=== PATIENT | male | born 1955 | race Caucasian/White ===

== ENCOUNTER 2019-12-14 19:45 | Observation (INO) | payer MEDICAID, SELFPAY ==
[2019-12-14] VITALS (7 sets, daily range): BP systolic 125–147; BP diastolic 83–99; PULSE 74–90; RESP 16–17; TEMP 36.7; O2SAT 95–96; BMI 33.9; BMI 34.5
[2019-12-14 20:03] LABS: Basophils # 0.1 K/mm3 (0-0.2); Basophils % 0.8 % (0.1-2.0); Eosinophils # 0.4 K/mm3 (0.0-0.4); Eosinophils % 3.6 % (0.1-12.0); Hematocrit 46.4 % (42.0-52.0); Hemoglobin 16.4 g/dL (14.1-18.0); Lymphocytes # 2.9 K/mm3 (0.7-4.5); Lymphocytes % 28.9 % (10-50); Mean Corpuscular HGB Conc 35.5 g/dL (31.8-35.4); Mean Corpuscular Hemoglobin 30.9 pg (27.0-31.2); Mean Platelet Volume 8.5 fl (7.4-10.4); Monocytes # 0.6 K/mm3 (0.1-1.0); Monocytes % 6.3 % (1.7-9.3); Neutrophils % 60.4 % (37.0-80.0); Platelet Count 144 K/mm3 (142-424); Red Blood Count 5.33 M/mm3 (4.60-6.20); Red Cell Distribution Width 13.8 % (11.5-17.5); White Blood Count 9.9 K/mm3 (4.8-10.8)
[2019-12-14 20:05] LABS: POC Glucose,Bedside 131 (70-110)
[2019-12-14 20:09] LABS: Chloride 101 mmol/L (98-107); Sodium 138 mmol/L (136-145)
[2019-12-14 20:12] LABS: Alanine Aminotransferase 23 U/L (12-78); Albumin Level 4.1 g/dl (3.5-5.0); Albumin/Globulin Ratio 1.5 (1.1-1.8); Alkaline Phosphatase 42 U/L (38-126); Aspartate Amino Transferase 24 U/L (17-59); Bilirubin,Total 0.5 mg/dl (0.2-1.3); Blood Urea Nitrogen 21 mg/dl (9-20); Calcium 9.3 mg/dl (8.4-10.2); Carbon Dioxide 28 mmol/L (22.0-30.0); Creatinine Clearance Estimated 123 mL/min (50-200); Estimated Glomerular Filt Rate 76 ml/min (>60); GFR (African American) 92 ML/MIN (>60); Globulin 2.8 g/dL (1.3-3.2); Glucose 139 mg/dl (74-100); Total Protein,Serum 6.9 g/dl (6.3-8.2)
--- NOTE | 2019-12-14 20:21 | CT_ITS ---
PROCEDURE: CT HEAD/BRAIN WO CON CLINICAL INDICATION: dizziness Slurred speech, TIA COMPARISON: No exams were available for comparison TECHNIQUE: Axial images obtained. All CT scans at the facility use one or more dose reduction, viz: automated exposure control, ma/kV adjustment per patient size (including targeted exams where dose is matched to indication, i.e. head), or iterative reconstruction technique. FINDINGS: No midline shift, mass effect, intracranial hemorrhage, hydrocephalus, or extra-axial fluid collection is evident. Tortuous basilar artery measuring up to 5 mm in diameter the calvarium has an unremarkable appearance. No mastoid effusion. Mild mucosal thickening ethmoid air cells IMPRESSION: No acute intracranial finding Dictated by: Martín Mcdaniel MD 12/15/2019 06:25 Electronically signed by Martín Mcdaniel MD in [place] 12/15/2019 06:25
--- NOTE | 2019-12-14 20:40 | HMH.EDNEU ---
ED Disposition Clinical Impression: Obesity (BMI 30.0-34.9), Tobacco use Transient cerebral ischemia Qualifiers: Transient cerebral ischemia type: unspecified Qualified Code(s): G45.9 - Transient cerebral ischemic attack, unspecified HTN (hypertension) Qualifiers: Hypertension type: essential hypertension Qualified Code(s): I10 - Essential (primary) hypertension Disposition: Admitted as Observation Condition on Discharge: Good - Critical Care Critical Care Time: No Attestation: On 12/14/19, the high probability of a clinically significant, sudden or life threatening deterioration of the following system(s) required my full and direct attention, intervention and personal management. The time I documented below is in addition to time spent performing reported procedures but includes the following listed in this critical care notation. Medical Decision Making - Medical Records Medical records reviewed: Yes: I reviewed the patient's medical records. - Caio Inquiry Pt receiving controlled substance: No Vital Signs: 12/14/19 19:46 12/14/19 20:46 12/14/19 21:12 Temperature 98.1 F Temperature Source Oral Pulse Rate [Right Brachial] 79 76 78 Respiratory Rate 17 16 Blood Pressure [Right Arm] 145/97 H 139/87 136/83 Blood Pressure Mean [Right Arm] 113 104 100 Blood Pressure Source [Right Arm] Automatic Cuff Automatic Cuff Automatic Cuff Blood Pressure Position [Right Arm] Sitting Sitting Sitting 02 Sat by Pulse Oximetry 95 96 95 Oxygen Delivery Method Room Air Room Air Room Air - Lab Data Lab results reviewed: Yes: I reviewed the patient's lab results. Lab Results 12/14/19 19:47: WBC 9.9, RBC 5.33, Hgb 16.4, Hct 46.4, MCV 87.0, MCH 30.9, MCHC 35.5 H, RDW 13.8, Plt Count 144, MPV 8.5, Neut % (Auto) 60.4, Lymph % (Auto) 28.9, Caldwell % (Auto) 6.3, Eos % (Auto) 3.6, Baso % (Auto) 0.8, Neut # (Auto) 6.0, Lymph # (Auto) 2.9, Caldwell # (Auto) 0.6, Eos # (Auto) 0.4, Baso # (Auto) 0.1 12/14/19 19:47: Sodium 138, Potassium 4.0, Chloride 101, Carbon Dioxide 28, Anion Gap 13.0, BUN 21 H, Creatinine 1.00, Estimated Creat Clear 123, Estimated GFR 76, Est GFR ( Amer) 92, Glucose 139 H, Calcium 9.3, Total Bilirubin 0.5, AST 24, ALT 23, Alkaline Phosphatase 42, Total Protein 6.9, Albumin 4.1, Globulin 2.8, Albumin/Globulin Ratio 1.5 12/14/19 19:58: POC Glucose 131 H Result diagrams: 12/14/19 19:47 12/14/19 19:47 Orders (Tests/Meds): ED MEDICATIONS Generic Name Dose Route Start Last Admin Trade Name Freq PRN Reason Stop Dose Admin Sodium Chloride 1,000 mls @ 999 mls/hr 12/14/19 20:00 12/14/19 20:04 Sod Chlor 0.9% 1000ml Bag IV 12/14/19 21:00 999 mls/hr .Q1H1M MALLY Administration Lisinopril 5 mg 12/15/19 21:13 Zestril 5mg Tablet PO 12/15/19 21:14 ONCE ONE Discontinued Medications Generic Name Dose Route Start Last Admin Trade Name Freq PRN Reason Stop Dose Admin Aspirin 81 mg 12/14/19 21:13 Aspirin 81mg Chewable Tablet PO 12/14/19 21:14 ONCE ONE Enoxaparin Sodium 110 mg 12/14/19 21:12 Lovenox 120mg/0.8ml Syringe SQ 12/14/19 21:13 ONCE ONE ORDERS Category Date Time Status CT head/brain wo con Stat Cat Scan 12/14/19 20:21 Taken Erythrocyte Sedimentation Rate Stat Lab 12/14/19 19:47 Received Troponin I Q3H Lab 12/15/19 00:15 Ordered Troponin I Q3H Lab 12/15/19 03:15 Ordered Troponin I Stat Lab 12/14/19 19:47 Received - CT Data CT Scan: Head Time Received: 21:[address] Reviewed: Yes: I have viewed the radiologist's interpretation Preliminary Findings: Normal/NAD - Physician Consults Physician Consulted: gal Reason -: Admission Neuro HPI - General Chief Complaint: Dizziness Stated Complaint: dizziness Time Seen by Provider: 12/14/19 20:00 Mode of Arrival: EMS Source of Information: Patient, Relative, Medical Record Limitations: No Limitations Description of Symptoms (Recalled from ER Triage Doc. by RN): Patient brought in by
--- NOTE | 2019-12-14 20:46 | PC.NURSE ---
pt back from ct at this time
--- NOTE | 2019-12-14 21:14 | PC.NURSE ---
verbal order to admit and for lovenox 1mg/kg x one dose, aspirin 81mg x 1 dose, lisinopril 5mg x [address] gauthier for dr santo. bed requested for admit.
[2019-12-14 21:31] LABS: Erythrocyte Sedimentation Rate 22 mm/hr (0-20); Troponin I < 0.01 ng/ml (0.00-0.034)
--- NOTE | 2019-12-14 22:03 | PC.NURSE ---
patient up to floor via wheelchair.
[2019-12-15] VITALS: BP 143/82; PULSE 89; PULSE 90; RESP 16; TEMP 36.7; O2SAT 95
[2019-12-15 00:59] LABS: Troponin I < 0.01 ng/ml (0.00-0.034)
--- NOTE | 2019-12-15 02:41 | PC.NURSE ---
Late Entry: During admission questions, pt was offered Nicotine patch per MAR and pt refused. Pt stated he started smoking at the age of 16 and smoked up to 5 PPD and quit 8 years ago d/t his health. However pt started back smoking about a yr ago d/t everyone getting on my nerves . Pt encouraged to try patch, although pt continued to refuse.
[2019-12-15 03:38] LABS: Troponin I < 0.01 ng/ml (0.00-0.034)
[2019-12-15 04:00] VITALS: BP 140/68; PULSE 80; PULSE 88; RESP 16; TEMP 36.7; O2SAT 94
[2019-12-15 06:31] LABS: Basophils # 0.1 K/mm3 (0-0.2); Basophils % 0.9 % (0.1-2.0); Eosinophils # 0.3 K/mm3 (0.0-0.4); Eosinophils % 4.4 % (0.1-12.0); Hematocrit 46.2 % (42.0-52.0); Hemoglobin 15.8 g/dL (14.1-18.0); Lymphocytes # 2.2 K/mm3 (0.7-4.5); Lymphocytes % 29.2 % (10-50); Mean Corpuscular HGB Conc 34.2 g/dL (31.8-35.4); Mean Corpuscular Hemoglobin 31.2 pg (27.0-31.2); Mean Platelet Volume 8.2 fl (7.4-10.4); Monocytes # 0.5 K/mm3 (0.1-1.0); Monocytes % 6.6 % (1.7-9.3); Neutrophils # 4.4 K/mm3 (1.8-7.8); Neutrophils % 58.9 % (37.0-80.0); Platelet Count 128 K/mm3 (142-424); Red Blood Count 5.07 M/mm3 (4.60-6.20); Red Cell Distribution Width 13.5 % (11.5-17.5); White Blood Count 7.5 K/mm3 (4.8-10.8)
[2019-12-15 06:36] LABS: Potassium 4.3 mmoL/L (3.5-5.1)
[2019-12-15 06:39] LABS: Blood Urea Nitrogen 15 mg/dl (9-20); Calcium 8.8 mg/dl (8.4-10.2); Carbon Dioxide 28 mmol/L (22.0-30.0); Creatinine Clearance Estimated 125 mL/min (50-200); Estimated Glomerular Filt Rate 98 ml/min (>60); GFR (African American) 119 ML/MIN (>60); Glucose 123 mg/dl (74-100)
[2019-12-15 06:40] LABS: HDL Cholesterol 22 mg/dl (40-60); Magnesium 1.9 mg/dl (1.6-2.3)
[2019-12-15 06:50] LABS: Direct LDL Cholesterol 113.05 mg/dL (100-129)
[2019-12-15 07:07] LABS: Anion Gap 9.3 mEq/L (5-15); Chloride 107 mmol/L (98-107); Sodium 140 mmol/L (136-145)
[2019-12-15 07:08] LABS: Chol/HDL Ratio 7.6 (1-3.5); Cholesterol 168 mg/dl (140-200); Triglycerides 309 mg/dl (30-150); VLDL Cholesterol 62 mg/dL (0-40)
--- NOTE | 2019-12-15 07:36 | HMH.PHAVTE ---
[facility] Pharmacy VTE Monitoring - Patient Demographics Admission date: 12/14/19 Report Date: 12/15/19 Time: 07:36 Allergies/Adverse Reactions: Patient Allergies Penicillins Adverse Reaction (Verified 12/14/19 19:59) Height: 1.83 m Weight: 115.666 kg Patient Problems: Current Active Problems Transient cerebral ischemia (Acute) Obesity (BMI 30.0-34.9) (Acute) Tobacco use (Acute) HTN (hypertension) (Acute) - VTE Risk Labs: VTE Related Lab Results Hgb 15.8 g/dL (14.1-18.0) 12/15/19 06:21 Hct 46.2 % (42.0-52.0) 12/15/19 06:21 Plt Count 128 K/mm3 (142-424) L 12/15/19 06:21 BUN 15 mg/dl (9-20) D 12/15/19 06:21 Creatinine 0.80 mg/dl (0.66-1.25) 12/15/19 06:21 Estimated Creat Clear 125 mL/min (50-200) 12/15/19 06:21 VTE Score: 2 Clinical Trial Participant: No - Prophylaxis VTE Prophylaxis Ordered?: Yes Types of VTE Prophylaxis: TEDS Knee High
[2019-12-15 08:00] VITALS: BP 124/73; PULSE 70; PULSE 73; RESP 20; TEMP 36.4; O2SAT 97
--- NOTE | 2019-12-15 08:00 | CA_ITS ---
APPROVED REPORT Provider Enrollment Specialist: ROXANNA Laterality: Bilateral Study Quality: Good Indications: tia,HTN,SMOKER Doppler Spectral Velocity Analysis dICA (R) 63.60/25.50 cm/s dICA (L) 77.00/24.90 cm/s Ángela (R) 70.00/21.20 cm/s Ángela (L) 97.20/36.60 cm/s pICA (R) 60.30/19.30 cm/s pICA (L) 66.60/24.40 cm/s dCCA (R) 110.50/29.20 cm/s dCCA (L) 110.40/28.00 cm/s pCCA (R) 90.70/25.60 cm/s pCCA (L) 138.40/29.60 cm/s ICA/CCA 0.60 ICA/CCA 0.90 Findings Duplex evaluation demonstrates stenosis of the right proximal internal carotid artery in the range of 20-49% with PSV <140 cm/sec, EDV <100 cm/sec, and IC/CC Ratio <4.0.Duplex evaluation demonstrates stenosis of the left proximal internal carotid artery in the range of 20-49% with PSV <140 cm/sec, EDV <100 cm/sec, and IC/CC Ratio <4.0. Unable to visualize vertebrals bilaterally. Conclusion Duplex evaluation demonstrates stenosis of the right proximal internal carotid artery in the range of 20-49% with PSV <140 cm/sec, EDV <100 cm/sec, and IC/CC Ratio <4.0.Duplex evaluation demonstrates stenosis of the left proximal internal carotid artery in the range of 20-49% with PSV <140 cm/sec, EDV <100 cm/sec, and IC/CC Ratio <4.0. Unable to visualize vertebrals bilaterally. Electronically signed by : Martín Mcdaniel MD 12/15/2019 16:31:11
--- NOTE | 2019-12-15 08:00 | CA_ITS ---
APPROVED REPORT EXAM: Comprehensive 2D, Doppler, and color-flow Echocardiogram Youth Nutritional Monitor: Joy Cordero RDCS Ht: 6 ft 0 in Wt: 250lbs BSA: 2.34 BP: 136/83 mmHg Indications: TIA,HTN,SMOKER 2D Dimensions LVOT 1.64 cm (M/F) 1.5-2.5 M-Mode Dimensions RVDd 2.23 cm (0.9-2.6) LVDd 6.07 cm (3.5-5.7) LVDs 4.02 cm (3.5-5.7) IVSd 0.94 cm (0.6-1.1) PWd 0.85 cm (0.6-1.1) EF (Teich) 61.70% FS 33.80% EDV (Teich) 184.80 mL ESV (Teich) 70.80 mL LV Diastology E/A Ratio 0.74 Mitral Valve MV A Velocity 79.00 (40-130 cm/s) Left Ventricle Left atrium is mildly enlarged, left ventricle is normal size, mild concentric left ventricular hypertrophy, visually estimated ejection fraction 55% with no regional wall motion abnormality, grade 1 diastolic dysfunction seen without tissue Doppler evidence of raise left atrial pressure. Right Ventricle Right atrium and right ventricle are normal size and contractility. Aortic Valve Aortic valve is thickened and calcified leaflet chordae display good mobility, there is no aortic stenosis or aortic insufficiency. Mitral Valve Mitral valve mitral annular calcification, there is no mitral stenosis, there is mild mitral regurgitation. Tricuspid Valve Tricuspid valve grossly normal, there is mild tricuspid regurgitation, tricuspid regurgitation jet velocity is inadequate for calculation of the right ventricular systolic pressure. Pulmonic Valve Pulmonic valve is poorly visualized. Great Vessels Aortic root is normal size. Pericardium No significant pericardial effusion noted. Conclusion 1. Mildly enlarged left atrium, normal left ventricular size, mild concentric left ventricular hypertrophy, visually estimated ejection fraction 55% with no regional wall motion abnormality, grade 1 diastolic dysfunction seen without tissue Doppler evidence of raise left atrial pressure. 2. Mild mitral and tricuspid regurgitation. 3. No significant pericardial effusion noted. Electronically signed by : César Gill, 12/16/2019 11:08:30
--- NOTE | 2019-12-15 08:00 | HMH.HPDC ---
General - General Admission date:: 12/14/19 Discharge date: 12/15/19 *Admission Date: 12/14/19 *Chief complaint: Visual disturbances/dizziness *History of present illness: 64-year-old white male with history of hyperlipidemia, tobacco abuse and hypertension who presented to the emergency department with several episodes of left visual disturbance, dizziness and tingling into his left face with some speech slurring. Although in the emergency department his exam was normal because of these accelerating TIA type patterns he was admitted overnight for neuro checks and further diagnostic testing. [facility] History I have reviewed the patient's past medical history: Yes Medical History: Reports:: Hypertension Denies:: Cancer, Diabetes Mellitus Type 1, Diabetes Mellitus Type 2, MRSA *Have you ever received a pneumonia vaccine?: No *Have you received a flu vaccine this season?: No Other Medical History: Reports: Arthritis Other Surgeries: Yes: Colonoscopy - *Social History Last grade of school completed: 9th or 10th Smoking Status: Current every day smoker Tobacco Type: cigarettes # Packs/Day (cigarettes): 2 Alcohol Intake: current Alcohol Intake Frequency:: holidays/special occasions only *Occupational Status:: employed Housing: house Household Members: spouse *Travel in the last 8 weeks: None Family Hx:: No significant family history Review of Systems - Review of Systems Review of systems:: pertinent systems reviewed and negative unless documented below - *Neurologic Denies localized weakness, Denies seizure-like activity Exam Vital signs and Labs for Last 24 Hours: Temp Pulse Resp BP Pulse Ox 98.0 F 88 16 140/68 94 L 12/15/19 04:00 12/15/19 04:00 12/15/19 04:00 12/15/19 04:00 12/15/19 04:00 Laboratory Results - last 24 hr 12/14/19 19:47: WBC 9.9, RBC 5.33, Hgb 16.4, Hct 46.4, MCV 87.0, MCH 30.9, MCHC 35.5 H, RDW 13.8, Plt Count 144, MPV 8.5, Neut % (Auto) 60.4, Lymph % (Auto) 28.9, Lasalle % (Auto) 6.3, Eos % (Auto) 3.6, Baso % (Auto) 0.8, Neut # (Auto) 6.0, Lymph # (Auto) 2.9, Lasalle # (Auto) 0.6, Eos # (Auto) 0.4, Baso # (Auto) 0.1 12/14/19 19:47: Sodium 138, Potassium 4.0, Chloride 101, Carbon Dioxide 28, Anion Gap 13.0, BUN 21 H, Creatinine 1.00, Estimated Creat Clear 123, Estimated GFR 76, Est GFR ( Amer) 92, Glucose 139 H, Calcium 9.3, Total Bilirubin 0.5, AST 24, ALT 23, Alkaline Phosphatase 42, Total Protein 6.9, Albumin 4.1, Globulin 2.8, Albumin/Globulin Ratio 1.5 12/14/19 19:47: ESR 22 H 12/14/19 19:47: Troponin I < 0.01 12/14/19 19:58: POC Glucose 131 H 12/15/19 00:25: Troponin I < 0.01 12/15/19 03:09: Troponin I < 0.01 12/15/19 06:21: WBC 7.5, RBC 5.07, Hgb 15.8, Hct 46.2, MCV 91.0, MCH 31.2, MCHC 34.2, RDW 13.5, Plt Count 128 L, MPV 8.2, Neut % (Auto) 58.9, Lymph % (Auto) 29.2, Lasalle % (Auto) 6.6, Eos % (Auto) 4.4, Baso % (Auto) 0.9, Neut # (Auto) 4.4, Lymph # (Auto) 2.2, Lasalle # (Auto) 0.5, Eos # (Auto) 0.3, Baso # (Auto) 0.1 12/15/19 06:21: Sodium 140, Potassium 4.3, Chloride 107, Carbon Dioxide 28, Anion Gap 9.3, BUN 15 D, Creatinine 0.80, Estimated Creat Clear 125, Estimated GFR 98, Est GFR ( Amer) 119 D, Glucose 123 H, Calcium 8.8, Magnesium 1.9, Triglycerides 309 H, Cholesterol 168, LDL Cholesterol Direct 113.05, VLDL Cholesterol 62 H, HDL Cholesterol 22 L, Cholesterol/HDL Ratio 7.6 H I & O for Last 24 hours: Intake & Output 12/12/19 12/13/19 12/14/19 12/15/19 11:59 11:59 11:59 11:59 Intake Total 490 / 490 Balance 490 / 490 Weight 255 lb - *Routine HEENT Exam Head: Present: normocephalic Eye: Present: EOMI, PERRL ENT: Present: mucous membranes moist - *Routine Neck Exam Present: supple. Absent: lymphadenopathy - *Routine Respiratory Exam Present: CTA bilaterally - *Routine Cardiovascular Exam Present: RRR - *Routine Abdominal Exam Present: soft, normoactive bowel sounds. Absent: tenderness - *Routine Extremities Exam Absent: cyanosis, clubbing, ed
--- NOTE | 2019-12-15 08:30 | HMH.PHAINT ---
DISCHARGE COUNSELING COMPLETED ON PATIENT. NEW PRESCRIPTION FOR LIPITOR 40MG TO BE TAKEN AT NIGHT. THIS WAS SENT TO [facility]. REFILLS WERE ALSO SENT FOR PATIENT'S LISINOPRIL AND ASPIRIN. PATIENT AND PATIENT'S SPOUSE VERBALIZED UNDERSTANDING AND HAD NO QUESTIONS AT THIS TIME. -TROY SOLIS, ANTOINED
== END 2019-12-15 08:40 | disposition home or self-care (01) ==
LOC: ER 19:51 → 2ND 21:21
PROVIDERS: Admitting Provider Internal Medicine Adolescent Medicine; Emergency Provider Emergency Medicine; PCP Nurse Practitioner Family; Visit Provider Internal Medicine Adolescent Medicine
DX: G45.9 Transient cerebral ischemic attack, unspecified (principal); I10 Essential (primary) hypertension; E78.5 Hyperlipidemia, unspecified; Z72.0 Tobacco use
CPT/HCPCS: 36415; 70450; 80048; 80053; 80061; 82962; 83735; 84484; 85025; 85651; 93306; 93880; 96365; 96372; 99284; G0378

== ENCOUNTER → 2019-12-21 14:21 | Outpatient (CLI) | payer MEDICAID, SELFPAY ==
--- NOTE | 2019-12-21 14:32 | MR_ITS ---
PROCEDURE: MR ANGIO HEAD ANTONIETA CON Patient Age:64Y CLINICAL INDICATION: TIA, DIZZINESS, UNSTEADY GAIT episodes of dizziness headache immobile left leg slurred speech 1 year worse past 2 months COMPARISON: MR HEAD/BRAIN ANTONIETA LEONG from 12/21/2019 TECHNIQUE: MRA angiogram of the brain is with focus upon [id number] a using primarily time of flight technique FINDINGS: Images the brain with attention [id number] reveal No aneurysm. No vascular malformation Anterior circulation Internal carotid arteries appear satisfactory bilaterally satisfactory symmetric appearance of both carotid siphons. Normal caliber and normal branching of ICA . MCA appears satisfactory appropriate branching with no good evidence of aneurysm here or at [id number] elsewhere. MCA branches actually well seen extending into through the sylvian fissure of no discrete abnormalities in these regions.. The anterior cerebral arteries and pericallosal arteries believe are satisfactory-although there is some signal loss likely artifactual seen and both anterior cerebral arteries approximately 1 in above anterior communicating a artery. I favor this is merely artifact as a both anterior cerebral arteries continue beyond this point satisfactorily. Posterior circulation. Both vertebral arteries are identified forming a generous basilar artery. However just superior to the bilateral of takeoff anterior inferior cerebellar arteries, there appears to be a significant area of narrowing at the basilar artery. Estimate roughly 70 percent diameter stenosis is suggested on these images. I cannot attribute this to artifact and this appearance is evident on all images through this region.. You may want to consider a follow-up CT angiogram in follow-up confirm this appearance; I find CT a provides even greater anatomical detail and quantification for this type of stenosis period... Again reviewing the prior standard MR brain we see no no discrete territorial infarct at posterior fossa IMPRESSION: 1.. 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 Although certainly fairly convincing on these images CTAa could additionally confirm this lesion/stenosis provide greater anatomical detail of the degree of stenosis-thus might be considered in follow-up A stenosis here would certainly correspond with the intermittent dizziness symptoms reported 2. Overall anterior circulation I believe satisfactory. Normal branching MCA There is a area of signal loss at the proximal anterior cerebral arteries which I favor is due to artifact (doubt focal mild stenosis of both anterior cerebral artery at same level) 3. No aneurysm. Nor vascular malformation at brain Dictated by: Jericho Quinones MD 12/24/2019 10:13 Electronically signed by Jericho Quinones MD in [place] 12/24/2019 10:13
--- NOTE | 2019-12-21 14:32 | MR_ITS ---
PROCEDURE: MR HEAD/BRAIN WO CON Patient Age:64Y CLINICAL INDICATION: TIA, DIZZINESS, UNSTEADY GAIT. Immobile left leg. Slurred speech. Symptoms 1 year but worse over the past 2 months. COMPARISON: XR CHEST PORTABLE from 08/18/2019 CT HEAD/BRAIN WO CON from 12/14/2019 TECHNIQUE: Multiplanar multisequence imaging on 1.5 cyndie MR. Images sequences include T1, T2, FLAIR, a ADC/diffusion FINDINGS: Normal overall anatomy. No mass effect or discrete mass lesion No territorial infarct. No discrete acute infarct . Ventricles appropriate size and appearance.. Basal cisterns unremarkable the 2 tearing and sella normal size. Regarding history of dizziness: Normal cranial cervical junction. CP angles clear. Posterior fossa unremarkable. IAC's unremarkable on this noncontrast study.. Mastoids are for the most part clear with only a single high signal inferior left mastoid antrum air cell reflecting a very small insignificant appearing mastoid effusion here (axial slice 5) Single peripheral high signal focus seen superiorly involving the far peripheral white matter, at the base of a superior gyrus near midline precentral region (coronal image 17 axial 22) towards the convexity.. This focus is best seen on the coronal FLAIR image measuring to 5.5 mm height x 3 mm wide. This is nonspecific high-signal focus: In this age I suspect more likely a small chronic small-vessel ischemic focus but more peripheral than typically seen for such. Unlikely onset of demyelinating disease at this age. There is no mass effect or is edema associated but if symptoms continue to progress consider postcontrast study.-Note CXR from July 2019 showed no related nor prominent findings Stippled mildly prominent perivascular spaces are seen floor the basal ganglia; with most evident small 4 mm round focus at the floor of right basal ganglia. No associated increased FLAIR signal here thus favor prominent perivascular spaces and rather than small old lacune. Prominent perivascular spaces more frequently seen with history of hypertension There is subtle rim increased signal surrounding the lateral ventricles this likely reflects some aging changes of the ependyma, particularly anteriorly about the horns. Of however possibly could be a reflection of early small vessel ischemic changes.-I would specifically note that there is a small additional deep white matter signal focus superior to the atria of the left lateral ventricle as seen on coronal image 19 which is suggestive of minor early deep white matter ischemic gliotic changes. . Scalp, skull and dural spaces unremarkable.. Survey of orbits unremarkable. Only scant if any mucosal thickening at ethmoid air cells left more so than right. Maxillary sinuses, sphenoid, and frontal sinuses clear. There appears to be some deviation nasal septum convex to the right with a moderate engorged of left nasal turbinates currently on today's study. IMPRESSION: 1. Normal anatomy.. No acute nor territorial infarct. No discrete mass affect or mass lesion. 2. There is a discrete solitary peripheral high signal focus within the white matter at base of gyrus superiorly, near midline, pre central region.(best seen on coronal image 17). [id number] size Although this more peripheral than typically seen for small vessel disease, suspect this is most likely etiology of this focus in this age patient.. Demyelinating disease onset at this age would be unusual. No edema or mass effect associated;however symptoms should progression may want to consider a follow-up postcontrast study. 3. Also suggestion very minor chronic small vessel deep white-matter ischemic changes periventricular region, specifically noting small
== END ==
PROVIDERS: PCP Nurse Practitioner Family; Visit Provider Nurse Practitioner Family
DX: R42 Dizziness and giddiness (principal); R26.81 Unsteadiness on feet; R47.81 Slurred speech; G45.9 Transient cerebral ischemic attack, unspecified
CPT/HCPCS: 70544; 70551

== ENCOUNTER → 2020-07-29 09:41 | Outpatient (CLI) | payer OTHER, SELFPAY ==
[2020-07-29 10:22] LABS: Hemoglobin A1C 6.7 % (4.0-6.0)
[2020-07-29 10:44] LABS: Chloride 106 mmol/L (98-107)
[2020-07-29 10:45] LABS: Potassium 5.5 mmoL/L (3.5-5.1); Sodium 139 mmol/L (136-145)
[2020-07-29 10:47] LABS: Alanine Aminotransferase 22 U/L (12-78); Albumin Level 4.3 g/dl (3.5-5.0); Albumin/Globulin Ratio 1.6 (1.1-1.8); Alkaline Phosphatase 44 U/L (38-126); Anion Gap 10.5 mEq/L (5-15); Aspartate Amino Transferase 27 U/L (17-59); Bilirubin,Total 0.6 mg/dl (0.2-1.3); Blood Urea Nitrogen 14 mg/dl (9-20); Calcium 9.7 mg/dl (8.4-10.2); Carbon Dioxide 28 mmol/L (22.0-30.0); Cholesterol 191 mg/dl (140-200); Estimated Glomerular Filt Rate 86 ml/min (>60); GFR (African American) 103 ML/MIN (>60); Globulin 2.7 g/dL (1.3-3.2); Glucose 111 mg/dl (74-100); Triglycerides 244 mg/dl (30-150); VLDL Cholesterol 49 mg/dL (0-40)
[2020-07-29 10:48] LABS: Chol/HDL Ratio 6.8 (1-3.5); HDL Cholesterol 28 mg/dl (40-60)
[2020-07-29 10:59] LABS: Direct LDL Cholesterol 130.72 mg/dL (100-129)
== END ==
PROVIDERS: Visit Provider Nurse Practitioner Family
DX: Z00.00 Encounter for general adult medical examination without abnormal findings (principal); E78.2 Mixed hyperlipidemia; I10 Essential (primary) hypertension; E11.9 Type 2 diabetes mellitus without complications
CPT/HCPCS: 36415; 80053; 80061; 83036

== ENCOUNTER → 2020-09-19 10:53 | Outpatient (CLI) | payer OTHER, SELFPAY ==
[2020-09-19 11:14] LABS: Basophils # 0.1 K/mm3 (0-0.2); Basophils % 0.8 % (0.1-2.0); Eosinophils # 0.3 K/mm3 (0.0-0.4); Eosinophils % 4.1 % (0.1-12.0); Hemoglobin 15.4 g/dL (14.1-18.0); Lymphocytes % 26.2 % (10-50); Mean Corpuscular HGB Conc 32.8 g/dL (31.8-35.4); Mean Corpuscular Hemoglobin 29.7 pg (27.0-31.2); Mean Corpuscular Volume 90.6 fl (80-94); Mean Platelet Volume 8.1 fl (7.4-10.4); Monocytes # 0.5 K/mm3 (0.1-1.0); Neutrophils # 4.8 K/mm3 (1.8-7.8); Neutrophils % 62.8 % (37.0-80.0); Platelet Count 153 K/mm3 (142-424); Red Blood Count 5.19 M/mm3 (4.60-6.20); Red Cell Distribution Width 13.3 % (11.5-17.5); White Blood Count 7.6 K/mm3 (4.8-10.8)
[2020-09-19 11:59] LABS: Alanine Aminotransferase 22 U/L (12-78); Albumin/Globulin Ratio 1.6 (1.1-1.8); Alkaline Phosphatase 52 U/L (38-126); Anion Gap 10.9 mEq/L (5-15); Aspartate Amino Transferase 24 U/L (17-59); Bilirubin,Total 0.4 mg/dl (0.2-1.3); Blood Urea Nitrogen 12 mg/dl (9-20); Calcium 9.2 mg/dl (8.4-10.2); Carbon Dioxide 26 mmol/L (22.0-30.0); Chloride 106 mmol/L (98-107); Chol/HDL Ratio 5.1 (1-3.5); Cholesterol 148 mg/dl (140-200); Estimated Glomerular Filt Rate 86 ml/min (>60); GFR (African American) 103 ML/MIN (>60); Globulin 2.5 g/dL (1.3-3.2); Glucose 126 mg/dl (74-100); HDL Cholesterol 29 mg/dl (40-60); Potassium 4.9 mmoL/L (3.5-5.1); Sodium 138 mmol/L (136-145); Total Protein,Serum 6.5 g/dl (6.3-8.2); Triglycerides 143 mg/dl (30-150); VLDL Cholesterol 29 mg/dL (0-40)
[2020-09-19 12:09] LABS: Direct LDL Cholesterol 95.02 mg/dL (100-129)
[2020-09-19 12:15] LABS: 25-OH Vitamin D, Total 19.6 ng/mL (30-100)
[2020-09-19 12:30] LABS: Thyroid Stimulating Hormone 2.31 uIU/mL (0.465-4.68)
[2020-09-19 12:48] LABS: Vitamin B12 277 pg/mL (239-931)
[2020-09-20 10:23] LABS: Hemoglobin A1C 6.9 % (4.0-6.0)
== END ==
PROVIDERS: Visit Provider Nurse Practitioner Family
DX: R42 Dizziness and giddiness (principal); I10 Essential (primary) hypertension; E11.9 Type 2 diabetes mellitus without complications; R20.2 Paresthesia of skin
CPT/HCPCS: 36415; 80053; 80061; 82306; 82607; 83036; 84443; 85025; 93270

== ENCOUNTER → 2020-10-12 12:40 | Outpatient (CLI) | payer OTHER, SELFPAY | PROVIDERS: PCP Nurse Practitioner Family; Visit Provider Nurse Practitioner Family | DX: G47.9 Sleep disorder, unspecified (principal); R51.9 Headache, unspecified; R06.83 Snoring; R40.0 Somnolence; G47.00 Insomnia, unspecified | CPT/HCPCS: 95806 ==

== ENCOUNTER → 2020-11-21 06:25 | Outpatient (CLI) | payer OTHER, SELFPAY ==
--- NOTE | 2020-11-21 06:26 | CA_ITS ---
APPROVED REPORT Exam: Pharmacologic Technologist: tom villegas, Ht: 6 ft 0 in Wt: 270 lbs BSA: 2.42 m2 HR: 73 bpm BP: 155/90 mmHg Indications: CP, SOB Medical History Medications: Lisinopril,,,,, Metoprolol,,,,, Asa,,,,, Metformin,,,,, Trazadone,,,,, Lipitor,,,,, BuPROPIn,,,,, Allergies: Penicillin Cardiac Risk Factors: HTN, Hyperlipidemia, Diabetes (non-insulin), Smoking Stress Test Details Test: LEXISCAN HR Resting HR: 73 bpm Max Heart Rate (APMHR): 158.963110 bpm Max HR Achieved: 97 bpm Target HR (85% APMHR): 134.655221 bpm % of APMHR: 61.39 Recovery HR: 83 bpm BP Resting BP: 155/90 mmHg Max BP: 169/84 mmHg Recovery BP: 163.0/89.0 mmHg ECG Resting ECG: NSR, normal Clinical Exercise duration: 04:01 min Highest Stage Achieved: Exercise capacity: 1.0 METs Stress ECG Conclusion Mild chest tightness, SOA, malaise during peak infusion that resolved during recovery. No arhhythmia or ectopy. Unremarkable Lexiscan stress. Images reported separately. Test Summary REST 02:47 . . 73 . 155/ 90 . . Stage 1 01:00 . . 91 . . . . Stage 2 01:00 . . 90 . . . . Stage 3 01:00 . . 83 . 162/ 90 . . Stage 4 01:00 . . 79 . 160/ 97 . . Stage 4 01:01 . . 79 . 160/ 97 . Stop exercise at 04:01 RECOVERY 01:00 . . 77 . 163/ 89 . . RECOVERY 02:00 . . 77 . 163/ 89 . . RECOVERY 03:00 . . 76 . 145/ 87 . . RECOVERY 03:29 . . 79 . 145/ 87 . . Electronically signed by : César Gill, 11/21/2020 17:49:00
--- NOTE | 2020-11-21 06:26 | NM_ITS ---
APPROVED REPORT Exam: Nuclear Stress Test Indication: Chest pain, SOB, Obesity, HTN, DM, High cholesterol, Tobacco use, Abnormal EKG Patient Location: Outpatient Stress Tech: Gayle Gomez ND Tech:Rachelle Charles, ARRT, RT (R)(N) Ht: 6 ft 0 in Wt: 265 lbs HR: 73 bpm BP: 155/90 mmHg BSA: 2.40 m2 History: Chest pain, SOB, Obesity, HTN, DM, High cholesterol, Tobacco use, Abnormal EKG Procedure: Patient received a 0.4 mg of intravenous Lexiscan, resting heart rate 73 bpm, resting blood pressure 155/90 mmHg, with Lexiscan maximum heart rate achived was 83 bpm which is Less than 85 % of the maximum predicted heart rate and blood pressure was 163/89 mmHg. Electrocardiogram Resting electrocardiogram shows sinus rhythm, with Lexiscan there is less than 1.[address] segment depression noted from the baseline EKG. The EKG portion of the Lexiscan is nondiagnostic. Cardiac Stress and Resting SPECT Images: Cardiac Stress and Resting SPECT images were obtained using technetium 99m Myoview 31.4 mCi stress and 10.83 mCi at rest. Gated SPECT for analysis of segmental wall motion and calculation of the ejection fraction also done, prone images were also obtained. Cardiac stress and resting SPECT imaging show reversible ischemia involving the inferolateral wall, computer derived ejection fraction is 48% with moderate inferolateral wall hypokinesis. Right ventricle is normal size and contractility. Conclusion: 1. The EKG portion of the Lexiscan is nondiagnostic. 2. Scintigraphic evidence of reversible ischemia involving the inferolateral wall, computer derived ejection fraction is 48% with segmental wall motion abnormality described above, right ventricle is normal size and contractility. 3. Abnormal Lexiscan Myoview study. Electronically signed by : César Gill, 11/21/2020 18:12:55
--- NOTE | 2020-11-21 06:26 | CA_ITS ---
APPROVED REPORT EXAM: Comprehensive 2D, Doppler, and color-flow Echocardiogram Flight Simulator Teacher: Tsering Diaz CRT Ht: 6 ft 0 in Wt: 270lbs BSA: 2.42 BP: 153/90 mmHg Indications: Chest Pain, Shortness of Breath, Peripheral Edema, Hyperlipidemia, Hypertension/HDD 2D Dimensions LVOT 2.12 cm (M/F) 1.5-2.5 LA Volume 45.50 mL LA Volume Index 18.80 mL/m2 (M/F) 16-34 M-Mode Dimensions RVDd 2.98 cm (0.9-2.6) LA Diam 3.76 cm (1.9-4.0) LVDd 5.15 cm (3.5-5.7) Ao Diam 4.13 cm (2.0-3.7) LVDs 3.90 cm (3.5-5.7) IVSd 1.57 cm (0.6-1.1) PWd 1.09 cm (0.6-1.1) EF (Teich) 47.90% FS 24.30% EDV (Teich) 126.60 mL TAPSE 2.30 (<1.7) ESV (Teich) 65.90 mL LV Diastology E Decel Time 123.00 (160-240 msec) E/A Ratio 1.03 MED E' 5.90 (< 7 cm/sec) MED A' 9.20 cm/s E'/MED E' Ratio 14.97 (>14) LAT E' 8.30 (<10 cm/sec) LAT A' 8.40 cm/s E/LAT E' Ratio 10.64 (>14) Aortic Valve AO Peak GR. 5.00 mmHg Mitral Valve MV A Velocity 85.00 (40-130 cm/s) E/A Ratio 1.03 MV Decel. Time 123.00 (160-240 ms) Pulmonary Valve PV Peak Velocity 35.00 (50-150 cm/s) Left Ventricle Left atrium is mildly enlarged, left ventricle is normal size, mild concentric left ventricular hypertrophy, visually estimated ejection fraction 55% with no regional wall motion abnormality, grade 1 diastolic dysfunction seen without tissue Doppler evidence of raise left atrial pressure. Right Ventricle Right atrium and right ventricle are normal size and contractility. Aortic Valve Aortic valve is minimally thickened and fibrosed, there is no aortic stenosis or aortic insufficiency. Mitral Valve Mitral valve is grossly normal, there is trace mitral regurgitation. Tricuspid Valve Tricuspid valve is grossly normal, there is trace tricuspid regurgitation, tricuspid rotation jet velocity is inadequate for calculation of the right ventricular systolic pressure. Pulmonic Valve Pulmonic valve is poorly visualized. Great Vessels Aortic root is normal size. Pericardium No significant pericardial effusion noted. Conclusion 1. Mildly enlarged left atrium, normal left ventricular size, mild concentric left ventricular hypertrophy, visually estimated ejection fraction 55% with no regional wall motion abnormality, grade 1 diastolic dysfunction seen without tissue Doppler evidence of raise left atrial pressure. 2. Trace mitral and tricuspid regurgitation. 3. No significant pericardial effusion noted. Electronically signed by : César Gill, 11/21/2020 18:34:55
--- NOTE | 2020-11-21 08:12 | HMH.ITSHM ---
Current Home Medications as stated by this patient Curt Carrasco or client services representative. []TRAZODONE METOPROLOL METFORMIN LISINOPRIL BUPROPION ATORVASTATIN ASA
== END ==
PROVIDERS: PCP Nurse Practitioner Family; Visit Provider Urology
DX: R06.00 Dyspnea, unspecified (principal); I47.2 Ventricular tachycardia; R94.31 Abnormal electrocardiogram [ECG] [EKG]; I10 Essential (primary) hypertension; E78.5 Hyperlipidemia, unspecified; E66.9 Obesity, unspecified; Z68.36 Body mass index [BMI] 36.0-36.9, adult; Z72.0 Tobacco use
CPT/HCPCS: 78452; 93017; 93306; A9502; J2785

== ENCOUNTER 2020-12-11 10:23 | Day surgery (SDC) | payer OTHER, SELFPAY ==
[2020-12-11] VITALS (12 sets, daily range): BP systolic 167–193; BP diastolic 78–122; PULSE 68–79; RESP 16–18; O2SAT 90–97; BMI 36.1
--- NOTE | 2020-12-11 | IR_ITS ---
APPROVED REPORT Patient Location: Outpatient [employer]: HERIBERTO Cook RT (R) PROCEDURES Left heart catheterization Left ventriculogram Selective coronary angiogram INDICATION High risk abnormal Myoview, Angina pectoris, Coronary artery disease, Informed consent was obtained prior to the procedure. COMPLICATIONS None Estimated Blood Loss: Less than 10 mls TECHNIQUE One percent lidocaine used to anesthetize the right anterior aspect of the wrist. The right radial artery was accessed via the Seldinger technique. A 6 Macedonian sheath was placed in the right radial artery. 2.5 mg of verapamil, 800 mcg of nitroglycerin, 1mg Lidocaine and 5000 U Heparin were given through the arterial sheath. The trap catheter was also used to perform left heart catheterization, left ventriculogram and selective coronary angiogram. At the end of the procedure the sheath was removed good hemostasis was achieved using Traclet band, patient was transferred to the postop holding area in stable condition. ANGIOGRAPHIC RESULTS The left main artery Normal The left anterior descending artery Has proximal 40% followed by 70% followed by mid vessel 70% stenosis. It gives rise to a large first diagonal artery which has an ostial 70% stenosis The circumflex artery Is nondominant proximally occluded and fills via right to left collaterals The right coronary artery Large and dominant with proximal 50 mid vessel 60% stenoses distal eccentric 50% stenosis. A large posterior descending artery has a proximal 90% stenosis. The PDA collateralizes the chronically occluded circumflex artery The DRUMMOND ventriculogram reveals Preserved at 60% The left ventricular end-diastolic pressure 20 mmHg IMPRESSION Severe three-vessel coronary disease as described above Preserved ejection fraction Mildly elevated LVEDP PLAN 1. Patient will be referred for coronary bypass surgery [facility] 2. Continue aggressive medical management with antianginal medications and high intensity statin therapy Electronically signed by : Jose Joyner, 12/11/2020 12:39:28
[2020-12-11 11:26] LABS: Coronavirus 19, PCR Not Detected (NotDetected); Influenza A, PCR Not Detected (NotDetected); Influenza B, PCR Not Detected (NotDetected)
[2020-12-11 11:35] LABS: Basophils # 0.1 K/mm3 (0-0.2); Basophils % 0.7 % (0.1-2.0); Eosinophils # 0.3 K/mm3 (0.0-0.4); Eosinophils % 4.6 % (0.1-12.0); Hematocrit 44.4 % (42.0-52.0); Hemoglobin 15.1 g/dL (14.1-18.0); Lymphocytes # 1.8 K/mm3 (0.7-4.5); Mean Corpuscular Hemoglobin 29.9 pg (27.0-31.2); Mean Platelet Volume 7.9 fl (7.4-10.4); Monocytes # 0.4 K/mm3 (0.1-1.0); Neutrophils # 4.7 K/mm3 (1.8-7.8); Neutrophils % 64.6 % (37.0-80.0); Platelet Count 124 K/mm3 (142-424); Red Blood Count 5.04 M/mm3 (4.60-6.20); Red Cell Distribution Width 14.3 % (11.5-17.5); White Blood Count 7.3 K/mm3 (4.8-10.8)
[2020-12-11 11:36] LABS: Anion Gap 10.7 mEq/L (5-15); Blood Urea Nitrogen 13 mg/dl (9-20); Calcium 8.8 mg/dl (8.4-10.2); Carbon Dioxide 28 mmol/L (22.0-30.0); Chloride 106 mmol/L (98-107); Creatinine Clearance Estimated 129 mL/min (50-200); Estimated Glomerular Filt Rate 75 ml/min (>60); GFR (African American) 91 ML/MIN (>60); Glucose 109 mg/dl (74-100); Potassium 4.7 mmoL/L (3.5-5.1); Sodium 140 mmol/L (136-145)
== END 2020-12-11 15:38 | disposition home or self-care (01) ==
LOC: CATHLAB 10:24
PROVIDERS: PCP Nurse Practitioner Family; Visit Provider Internal Medicine
DX: R94.39 Abnormal result of other cardiovascular function study (principal); E11.9 Type 2 diabetes mellitus without complications; Z79.84 Long term (current) use of oral hypoglycemic drugs; Z79.899 Other long term (current) drug therapy; I25.118 Atherosclerotic heart disease of native coronary artery with other forms of angina pectoris; I25.82 Chronic total occlusion of coronary artery; Z20.822 Contact with and (suspected) exposure to COVID-19; F17.210 Nicotine dependence, cigarettes, uncomplicated; I11.0 Hypertensive heart disease with heart failure; I47.2 Ventricular tachycardia; I65.29 Occlusion and stenosis of unspecified carotid artery
CPT/HCPCS: 36415; 80048; 85025; 93458; 99152; C1725; C1760; C1769; J1644; Q9967; U0003

== ENCOUNTER → 2021-03-12 09:04 | Outpatient (CLI) | payer OTHER, SELFPAY ==
[2021-03-12 09:23] LABS: Basophils # 0.1 K/mm3 (0-0.2); Basophils % 0.9 % (0.1-2.0); Eosinophils # 0.3 K/mm3 (0.0-0.4); Eosinophils % 4.4 % (0.1-12.0); Hematocrit 47.5 % (42.0-52.0); Hemoglobin 15.6 g/dL (14.1-18.0); Lymphocytes % 26.2 % (10-50); Mean Corpuscular HGB Conc 32.7 g/dL (31.8-35.4); Mean Corpuscular Hemoglobin 30.1 pg (27.0-31.2); Mean Corpuscular Volume 92.1 fl (80-94); Mean Platelet Volume 7.8 fl (7.4-10.4); Monocytes # 0.4 K/mm3 (0.1-1.0); Monocytes % 5.5 % (1.7-9.3); Neutrophils # 4.7 K/mm3 (1.8-7.8); Platelet Count 162 K/mm3 (142-424); Red Blood Count 5.16 M/mm3 (4.60-6.20); Red Cell Distribution Width 13.3 % (11.5-17.5); White Blood Count 7.5 K/mm3 (4.8-10.8)
[2021-03-12 09:57] LABS: Chloride 105 mmol/L (98-107)
[2021-03-12 09:58] LABS: Potassium 5.1 mmoL/L (3.5-5.1); Sodium 140 mmol/L (136-145)
[2021-03-12 10:01] LABS: Anion Gap 11.1 mEq/L (5-15); Blood Urea Nitrogen 10 mg/dl (9-20); Calcium 9.1 mg/dl (8.4-10.2); Carbon Dioxide 29 mmol/L (22.0-30.0); Estimated Glomerular Filt Rate 98 ml/min (>60); GFR (African American) 118 ML/MIN (>60); Glucose 116 mg/dl (74-100)
== END ==
PROVIDERS: Visit Provider Physician Assistant
DX: R06.00 Dyspnea, unspecified (principal); R94.31 Abnormal electrocardiogram [ECG] [EKG]; I47.2 Ventricular tachycardia; R94.39 Abnormal result of other cardiovascular function study; I10 Essential (primary) hypertension; E78.5 Hyperlipidemia, unspecified; I65.29 Occlusion and stenosis of unspecified carotid artery; E66.9 Obesity, unspecified; Z72.0 Tobacco use; Z68.37 Body mass index [BMI] 37.0-37.9, adult
CPT/HCPCS: 36415; 80048; 85025

== ENCOUNTER → 2021-05-12 10:26 | Outpatient (CLI) | payer OTHER, SELFPAY ==
[2021-05-12 13:46] LABS: Alanine Aminotransferase 19 U/L (12-78); Albumin Level 3.9 g/dl (3.5-5.0); Albumin/Globulin Ratio 1.6 (1.1-1.8); Alkaline Phosphatase 43 U/L (38-126); Anion Gap 11.4 mEq/L (5-15); Aspartate Amino Transferase 23 U/L (17-59); Bilirubin,Total 0.3 mg/dl (0.2-1.3); Blood Urea Nitrogen 14 mg/dl (9-20); Calcium 9.1 mg/dl (8.4-10.2); Carbon Dioxide 27 mmol/L (22.0-30.0); Chloride 103 mmol/L (98-107); Cholesterol 117 mg/dl (140-200); Estimated Glomerular Filt Rate 85 ml/min (>60); GFR (African American) 103 ML/MIN (>60); Globulin 2.4 g/dL (1.3-3.2); Glucose 101 mg/dl (74-100); HDL Cholesterol 29 mg/dl (40-60); Potassium 4.4 mmoL/L (3.5-5.1); Sodium 137 mmol/L (136-145); Total Protein,Serum 6.3 g/dl (6.3-8.2); Triglycerides 125 mg/dl (30-150); VLDL Cholesterol 25 mg/dL (0-40)
[2021-05-12 13:57] LABS: Direct LDL Cholesterol 74.41 mg/dL (100-129)
[2021-05-12 15:34] LABS: Hemoglobin A1C 6.3 % (4.0-6.0)
== END ==
PROVIDERS: Visit Provider Nurse Practitioner Family
DX: Z00.00 Encounter for general adult medical examination without abnormal findings (principal); I10 Essential (primary) hypertension; E11.9 Type 2 diabetes mellitus without complications; Z79.84 Long term (current) use of oral hypoglycemic drugs
CPT/HCPCS: 36415; 80053; 80061; 83036

== ENCOUNTER → 2021-09-11 06:30 | Outpatient (CLI) | payer OTHER, SELFPAY ==
--- NOTE | 2021-09-11 | CA_ITS ---
APPROVED REPORT Exam: Pharmacologic Technologist: Nanda Brandt, Ht: 6 ft 0 in Wt: 278 lbs BSA: 2.45 m2 HR: 64 bpm BP: 172/84 mmHg Rhythm: NSR, rightward axis, poor R wave progression, ST abns in lead 3 and aVF Medical History Medical History: HTN, Hyperlipidemia, Diabetes Medications: Aspirin,,,,, Metoprolol,,,,, Metformin,,,,, Trazadone,,,,, Losartan,,,,, Atorvastatin,,,,, Vit D3,,,,, Vit B12,,,,, BuPROPION HCI,,,,, Cardiac Risk Factors: HTN, Hyperlipidemia, Diabetes (non-insulin) Stress Test Details Test: LEXISCAN HR Resting HR: 66 bpm Max Heart Rate (APMHR): 157.427961 bpm Max HR Achieved: 98 bpm Target HR (85% APMHR): 133.775524 bpm % of APMHR: 62.42 Recovery HR: 72 bpm BP Resting BP: 172/84 mmHg Max BP: 172/84 mmHg Recovery BP: 161.0/81.0 mmHg ECG Resting ECG: NSR, rightward axis, poor R wave progression, ST abns in 3 and aVF Clinical Exercise duration: 04:00 min Highest Stage Achieved: Exercise capacity: 1.0 METs Stress ECG Conclusion During lexiscan pt experinced SOA, mild nausea, and head discomfort. No CP noted. No arrhythmias noted. No significant ST changes. Unremarkable lexiscan stress. Myoview images reported separately. Test Summary REST . . . . . . . Sitting REST 07:02 . . 66 . 172/ 84 . . Stage 1 01:00 . . 73 . . . . Stage 2 01:00 . . 94 . . . . Stage 3 01:00 . . 82 . 157/ 85 . . Stage 4 01:00 . . 79 . 157/ 79 . Stop exercise at 04:00 RECOVERY 01:00 . . 77 . . . . RECOVERY 02:00 . . 71 . . . . RECOVERY 03:00 . . 74 . 161/ 81 . . RECOVERY 03:30 . . 76 . 161/ 81 . . Electronically signed by : César Gill MD 09/12/2021 06:23:04
--- NOTE | 2021-09-11 06:44 | NM_ITS ---
APPROVED REPORT Exam: Nuclear Stress Test Indication: SOB, CAD, CABG, HTN, DM, Tobacco use, Family history Patient Location: Outpatient Stress Tech: Nanda AKHTAR Tech:Rachelle Charles, ARRT, RT (R)(N) Ht: 6 ft 0 in Wt: 280 lbs HR: 66 bpm BP: 172/84 mmHg BSA: 2.46 m2 History: SOB, CAD, CABG, HTN, DM, Tobacco use, Family history Procedure: Patient received a 0.4 mg of intravenous Lexiscan, resting heart rate 66 bpm, resting blood pressure 172/84 mmHg, with Lexiscan maximum heart rate achived was 98 bpm which is Less than 85 % of the maximum predicted heart rate and blood pressure was 172/84 mmHg. With Lexiscan, patient denied any complaint of chest pain. Electrocardiogram Resting electrocardiogram shows sinus rhythm, good Lexiscan there is less than 1.[address] segment depression noted from the baseline EKG. The EKG portion of the Lexiscan is nondiagnostic. Cardiac Stress and Resting SPECT Images: Cardiac Stress and Resting SPECT images were obtained using technetium 99m Myoview 31.7 mCi stress and 10.02 mCi at rest. Gated SPECT for analysis of segmental wall motion and calculation of the ejection fraction also done. Prone images were also obtained. Cardiac stress and resting SPECT images show reversible ischemia involving the posterolateral wall, computer derived ejection fraction is 50% with no regional wall motion abnormality, right ventricle is normal size and contractility. Conclusion: 1. The EKG portion of the Lexiscan Myoview is nondiagnostic. 2. Scintigraphic evidence of reversible ischemia involving the posterolateral wall. Computer derived ejection fraction is 50% with no regional wall motion abnormality, right ventricle is normal size and contractility. 3. Abnormal Lexiscan Myoview study. Electronically signed by : César Gill MD 09/12/2021 06:27:06
--- NOTE | 2021-09-11 07:29 | CA_ITS ---
APPROVED REPORT EXAM: Comprehensive 2D, Doppler, and color-flow Echocardiogram Telehealth Coordinator: Kelsie Price RVT Ht: 6 ft 0 in Wt: 278lbs BSA: 2.45 BP: 155/90 mmHg Indications: SOA,EDEMA,CAD,CABG,DM,OBESTIY,HLD,HTN 2D Dimensions LVOT 2.51 cm (M/F) 1.5-2.5 LA Volume 43.50 mL LA Volume Index 17.75 mL/m2 (M/F) 16-34 M-Mode Dimensions RVDd 2.14 cm (0.9-2.6) LA Diam 4.87 cm (1.9-4.0) LVDd 6.34 cm (3.5-5.7) Ao Diam 3.63 cm (2.0-3.7) LVDs 3.97 cm (3.5-5.7) IVSd 0.49 cm (0.6-1.1) PWd 1.34 cm (0.6-1.1) EF (Teich) 66.30% FS 37.40% EDV (Teich) 204.10 mL TAPSE 1.88 (<1.7) ESV (Teich) 68.80 mL LV Diastology E Decel Time 150.00 (160-240 msec) E/A Ratio 0.9 MED E' 5.10 (< 7 cm/sec) E'/MED E' Ratio 20.06 (>14) LAT E' 9.90 (<10 cm/sec) E/LAT E' Ratio 10.33 (>14) Aortic Valve AO Peak GR. 4.70 mmHg Mitral Valve MV E Max Hugo. 102.00 (40-130 cm/s) MV A Velocity 113.00 (40-130 cm/s) E/A Ratio 0.90 MV Decel. Time 150.00 (160-240 ms) MV PHT 44.00 ms Pulmonary Valve PV Peak Velocity 84.00 (50-150 cm/s) Tricuspid Valve TR P. Velocity 215.00 cm/s RAP Estimate 10.00 mmHg RVSP 28.50 mmHg Left Ventricle Technically difficult study because of the patient factors and poor acoustic windows. Left atrium is mildly enlarged, left ventricle is normal size, mild concentric left ventricular hypertrophy, estimated ejection fraction 55% with no regional wall motion abnormality, endocardial surfaces are poorly visualized. Grade 1 diastolic dysfunction seen with tissue Doppler evidence of raise left atrial pressure. Right Ventricle Right atrium and right ventricle are normal size and contractility. Aortic Valve Aortic valve is minimally thickened and fibrosed there is no aortic stenosis or aortic insufficiency. Mitral Valve Mitral valve leaflets are minimally thickened, there is mild mitral regurgitation. Tricuspid Valve Tricuspid valve grossly normal, there is mild tricuspid regurgitation, tricuspid regurgitation jet velocity is inadequate for calculation of the right ventricular systolic pressure. Pulmonic Valve Pulmonic valve is poorly visualized. Great Vessels Aortic root is normal size. Inferior vena cava is poorly visualized. Pericardium No significant pericardial effusion. Conclusion 1. Normal left ventricular size, mild concentric left ventricular hypertrophy, estimated ejection fraction 55% with no regional wall motion abnormality, endocardial surfaces are poorly visualized, grade 1 diastolic dysfunction seen with tissue Doppler evidence of raise left atrial pressure. 2. Mild mitral and tricuspid regurgitation. 3. No significant pericardial effusion. 4. Inferior vena cava is poorly visualized. Electronically signed by : César Gill MD 09/12/2021 06:08:18
--- NOTE | 2021-09-11 08:17 | HMH.ITSHM ---
Current Home Medications as stated by this patient Curt Carrasco or customer field representative. []TRAZODONE METOPROLOL METFORMIN VITAMIN B12 VITAMIN D3 LOSARTAN BUPROPION ATORVASTATIN ASA
== END ==
PROVIDERS: PCP Nurse Practitioner Family; Visit Provider Internal Medicine
DX: R06.00 Dyspnea, unspecified (principal); I25.10 Atherosclerotic heart disease of native coronary artery without angina pectoris; I10 Essential (primary) hypertension; E11.69 Type 2 diabetes mellitus with other specified complication; E78.5 Hyperlipidemia, unspecified; I65.29 Occlusion and stenosis of unspecified carotid artery; R20.0 Anesthesia of skin; E66.9 Obesity, unspecified; Z72.0 Tobacco use; Z95.1 Presence of aortocoronary bypass graft; Z68.37 Body mass index [BMI] 37.0-37.9, adult; Z79.84 Long term (current) use of oral hypoglycemic drugs
CPT/HCPCS: 78452; 93017; 93306; A9502; J2785

== ENCOUNTER → 2021-09-15 11:52 | Outpatient (CLI) | payer OTHER, SELFPAY ==
[2021-09-15 12:46] LABS: Basophils # 0.2 K/mm3 (0-0.2); Eosinophils # 0.3 K/mm3 (0.0-0.4); Eosinophils % 4.6 % (0.1-12.0); Hematocrit 44.2 % (42.0-52.0); Hemoglobin 14.8 g/dL (14.1-18.0); Lymphocytes # 1.9 K/mm3 (0.7-4.5); Lymphocytes % 25.4 % (10-50); Mean Corpuscular HGB Conc 33.4 g/dL (31.8-35.4); Mean Corpuscular Hemoglobin 30.6 pg (27.0-31.2); Mean Corpuscular Volume 91.7 fl (80-94); Mean Platelet Volume 8.5 fl (7.4-10.4); Monocytes # 0.5 K/mm3 (0.1-1.0); Monocytes % 6.4 % (1.7-9.3); Neutrophils # 4.6 K/mm3 (1.8-7.8); Neutrophils % 61.6 % (37.0-80.0); Platelet Count 137 K/mm3 (142-424); Red Blood Count 4.82 M/mm3 (4.60-6.20); Red Cell Distribution Width 13.7 % (11.5-17.5); White Blood Count 7.4 K/mm3 (4.8-10.8)
[2021-09-15 14:53] LABS: Chloride 108 mmol/L (98-107); Potassium 4.4 mmoL/L (3.5-5.1); Sodium 138 mmol/L (136-145)
[2021-09-15 14:56] LABS: Anion Gap 9.4 mEq/L (5-15); Blood Urea Nitrogen 13 mg/dl (9-20); Calcium 8.2 mg/dl (8.4-10.2); Carbon Dioxide 25 mmol/L (22.0-30.0); Estimated Glomerular Filt Rate 75 ml/min (>60); GFR (African American) 91 ML/MIN (>60); Glucose 99 mg/dl (74-100)
== END ==
PROVIDERS: Visit Provider Physician Assistant
DX: Z01.812 Encounter for preprocedural laboratory examination (principal); Z11.52 Encounter for screening for COVID-19; R06.00 Dyspnea, unspecified; I20.8 Other forms of angina pectoris; I10 Essential (primary) hypertension; E11.9 Type 2 diabetes mellitus without complications; E78.5 Hyperlipidemia, unspecified; R94.39 Abnormal result of other cardiovascular function study; Z95.1 Presence of aortocoronary bypass graft; Z79.84 Long term (current) use of oral hypoglycemic drugs
CPT/HCPCS: 36415; 80048; 85025; C9803; U0003; U0005

== ENCOUNTER 2021-09-17 08:45 | Day surgery (SDC) | payer OTHER, SELFPAY ==
[2021-09-17] VITALS (14 sets, daily range): BP systolic 125–203; BP diastolic 73–108; PULSE 66–92; RESP 16–18; TEMP 36.6; O2SAT 90–98; BMI 37.7
--- NOTE | 2021-09-17 07:05 | IR_ITS ---
APPROVED REPORT Patient Location: Outpatient PROCEDURES Left heart catheterization Left ventriculogram Selective coronary angiogram Selective engagement of the left internal mammary artery Selective engagement of the saphenous vein graft to the obtuse marginal artery Selective engagement of the saphenous vein graft to the right coronary Drug-eluting stent deployment to the proximal LAD extending into a large first unbypassed diagonal artery INDICATION Coronary artery disease, History of coronary bypass surgery, Worsening angina pectoris Informed consent was obtained prior to the procedure. COMPLICATIONS None Estimated Blood Loss: Less than 10 ML TECHNIQUE One percent lidocaine used to anesthetize the right groin. The right femoral artery was accessed via the Seldinger technique and a 5 Samoan sheath was placed in the right femoral artery. A JL 4, JR4 catheter were used to perform left heart catheterization, left ventriculogram selective coronary angiography as well as selective engagement of the 2 vein grafts and the left internal mammary artery. At the end of the diagnostic angiogram therapeutic heparin was administered giving a therapeutic ACT and the 5 Samoan sheath was exchanged for a 6 Samoan sheath. An EBU 3.75 guide catheter was placed in the left main artery followed by a Choice PT extra-support wire being placed in the first diagonal artery. A 3 mm x 23 mm Xience drug-eluting stent was deployed at 24 tamiko reducing the stenosis in the LAD which fed the large unbypassed first diagonal artery. JOSE ALBERTO-3 flow was present before and after the procedure. At the end of the procedure and AR-2 guide catheter was then placed into the ascending aorta perform saphenous vein graft angiography to the right coronary artery. At the end of the procedure the apparatus was removed the groin is reprepped closure change sheath was removed and hemostasis was achieved using Perclose device patient was transferred to the postop holding in stable condition ANGIOGRAPHIC RESULTS The left main artery Normal The left anterior descending artery Has a proximal 50 followed by concentric 80% stenosis. Distal to the stenosis there is competitive flow from the HANSON graft into the mid LAD. There is a large unbypassed first diagonal artery. The circumflex artery Proximally occluded The right coronary artery There is a dominant vessel and has mid vessel 50% stenoses with distal 40% followed by an 80% stenosis followed by subtotally occluded posterior descending artery The DRUMMOND ventriculogram reveals Normal 65% The left ventricular end-diastolic pressure 10 mmHg HANSON to LAD is widely patent Saphenous vein graft to circumflex arteries widely patent Saphenous vein graft to right coronary artery is small atretic less than 1 mm in diameter and supplies a small amount of distal myocardium IMPRESSION Coronary disease as described above Successful stenting of the proximal LAD extending into a large unbypassed first diagonal artery Patent HANSON to LAD Patent saphenous vein graft to circumflex artery Small atretic saphenous vein graft supplying a small amount of myocardium in the right coronary artery distribution Normal ejection fraction Normal left ventricular end-diastolic pressure PLAN 1. Dual antiplatelet therapy 2. Medical management 3. Ischemic heart disease treatment 4. LDL less than 55 to be achieved with high intensity statin 5. Cardiac rehabilitation 6. Avoidance of tobacco products Electronically signed by : Jose Joyner MD 09/17/2021 15:22:44
[2021-09-17 11:49] LABS: CATHL Activated Clotting Time > 400 SEC (74-125)
--- NOTE | 2021-09-17 15:11 | HMH.PHACLD ---
Curt Carrasco has received discharge medication counseling on the following medications: -LOSARTAN -ASPIRIN (BLEED RISK AND WHAT TO WATCH FOR) -ATORVASTATIN -METOPROLOL -BRILINTA (HOW TO TAKE, WATCH FOR SIGNS/SYMPTOMS OF BLEEDING, RISK OF BLEEDING AND BRUISING, BE SEEN IF YOU BUMP YOUR HEAD). -METFORMIN (HOLD UNTIL FRIDAY).
== END 2021-09-17 15:00 | disposition home or self-care (01) ==
LOC: CATHLAB 08:49
PROVIDERS: PCP Nurse Practitioner Family; Visit Provider Internal Medicine
DX: I25.118 Atherosclerotic heart disease of native coronary artery with other forms of angina pectoris (principal); E11.9 Type 2 diabetes mellitus without complications; I25.82 Chronic total occlusion of coronary artery; Z95.1 Presence of aortocoronary bypass graft; E78.5 Hyperlipidemia, unspecified; I10 Essential (primary) hypertension; R94.39 Abnormal result of other cardiovascular function study; Z79.84 Long term (current) use of oral hypoglycemic drugs; Z79.899 Other long term (current) drug therapy
CPT/HCPCS: 85347; 92928; 93459; 99152; 99153; C1725; C1760; C1769; C1875; C1894; C9600; J1644; Q9967

== ENCOUNTER → 2022-05-02 12:03 | Outpatient (CLI) | payer OTHER, SELFPAY ==
--- NOTE | 2022-05-02 15:29 | HMH.ITSHM ---
Current Home Medications as stated by this patient Curt Carrasco or human resources hr representative. []TRAZODONE METOPROLOL METFORMIN VITAMIN B12 LOSARTAN ISOSORBIDE CLOPIDOGREL VITAMIN D3 BUPROPION ATORVASTATIN ASA
== END ==
LOC: RAD 12:04
PROVIDERS: PCP Nurse Practitioner Family; Visit Provider Nurse Practitioner Family
DX: R06.00 Dyspnea, unspecified (principal); I20.8 Other forms of angina pectoris; I65.23 Occlusion and stenosis of bilateral carotid arteries; Z95.1 Presence of aortocoronary bypass graft
CPT/HCPCS: 78452; 93017; A9502; J2785

== ENCOUNTER 2022-06-27 11:12 | Observation (INO) | payer OTHER, SELFPAY ==
[2022-06-27] VITALS (22 sets, daily range): BP systolic 124–157; BP diastolic 73–96; PULSE 62–100; RESP 16–20; TEMP 36.4–36.9; O2SAT 92–99; BMI 38.1
--- NOTE | 2022-06-27 07:01 | IR_ITS ---
APPROVED REPORT Patient Location: Outpatient [employer]: HERIBERTO Roger RT (R) PROCEDURES Left heart catheterization Left ventriculogram Selective coronary angiogram Selective engagement of the left internal mammary artery Selective engagement of the saphenous vein graft to circumflex artery Drug-eluting stent deployment to the ostial proximal mid and distal dominant right coronary artery Drug-eluting stent deployment to the posterior descending artery INDICATION Coronary artery disease, Abnormal Myoview inferior ischemia, History of coronary bypass surgery, Loss of saphenous vein graft to the right coronary, Accelerated angina pectoris Informed consent was obtained prior to the procedure. COMPLICATIONS None Estimated Blood Loss: Less than 10 mls TECHNIQUE One percent lidocaine used to anesthetize the right groin. The right femoral artery was accessed via the Seldinger technique and a 5 Turkish sheath was placed in the right femoral artery. A JL 4, JR4 catheter were used to perform selective coronary angiography as well as selective engagement of the 2 vein grafts and the left internal mammary artery. At the end the diagnostic angiogram therapeutic heparin was administered giving a therapeutic ACT and the 5 Turkish sheath was exchanged for a 6 Turkish sheath. JR4 guide catheter was placed in the right coronary artery and a Choice PT extra-support wire was placed distally. A 4 mm x 38 mm resolute Teto stent was deployed at 20 tamiko reducing the stenosis to 0%. An additional 4 mm x 38 mm resolute [place] stent was placed distal to the first stent yet still overlapping it and then deployed at 20 tamiko. No reflow phenomenon occurred and patient required multiple aliquots of nitroglycerin 800 mcg directly injected into the coronary arteries. An Integrilin drip was started and patient received 1 mg of atropine for bradycardia is in the high 20s and low 30s. Patient responded to the above therapy and a wire was then placed into the posterior descending artery where a 2.5 x 12 mm resolute Teto stent was deployed at 18 tamiko into the posterior descending artery reducing the stenosis. An additional 3.5 x 26 mm resolute [place] stent was placed distal to the first 4 mm stent and inside the proximal portion of the 2.5 mm stent and then deployed at 20 tamiko. The balloon was brought back between the 3.5 and 4 mm stent deployed at 24 tamiko. JOSE ALBERTO III flow was present before and after the procedure. At the end of procedure the apparatus the groin is reprepped closure change sheath was removed and hemostasis was achieved using Perclose device patient was transferred to the postop putting in stable condition ANGIOGRAPHIC RESULTS The left main artery Normal The left anterior descending artery Is occluded after large diagonal artery. The diagonal artery has diffuse 30% stenoses The circumflex artery Proximally occluded The right coronary artery Is a large dominant vessel has proximal concentric 80% stenosis long diffuse 80% mid vessel stenosis a distal eccentric 50% stenosis and a focal 90% stenosis immediately to the bifurcation of the PDA and PLV B. The DRUMMOND ventriculogram reveals Not performed The left ventricular end-diastolic pressure Not measured HANSON to LAD large graft widely patent Saphenous vein graft to circumflex arteries widely patent Saphenous vein graft to right coronary artery ostially occluded IMPRESSION Loss of saphenous vein graft supplying a dominant right coronary artery Successful reconstruction of the ostial proximal mid and distal dominant right coronary artery severe disease reduced to 0% with 3 contiguous drug-eluting stents Successful stenting of a large posterior descending artery severe dis
[2022-06-27 09:12] LABS: Anion Gap 7.3 mEq/L (5-15); Blood Urea Nitrogen 20 mg/dl (9-20); Calcium 8.7 mg/dl (8.4-10.2); Carbon Dioxide 31 mmol/L (22.0-30.0); Chloride 104 mmol/L (98-107); Creatinine Clearance Estimated 103 mL/min (50-200); Estimated Glomerular Filt Rate 56 ml/min (>60); GFR (African American) 67 ML/MIN (>60); Glucose 147 mg/dl (74-100); Potassium 4.3 mmoL/L (3.5-5.1); Sodium 138 mmol/L (136-145)
[2022-06-27 09:14] LABS: Basophils # 0.1 K/mm3 (0-0.2); Basophils % 1.3 % (0.1-2.0); Eosinophils # 0.4 K/mm3 (0.0-0.4); Eosinophils % 4.5 % (0.1-12.0); Hematocrit 43.9 % (42.0-52.0); Hemoglobin 14.2 g/dL (14.1-18.0); Lymphocytes # 1.9 K/mm3 (0.7-4.5); Lymphocytes % 21.7 % (10-50); Mean Corpuscular HGB Conc 32.3 g/dL (31.8-35.4); Mean Corpuscular Hemoglobin 29.5 pg (27.0-31.2); Mean Corpuscular Volume 91.5 fl (80-94); Mean Platelet Volume 8.6 fl (7.4-10.4); Monocytes # 0.6 K/mm3 (0.1-1.0); Monocytes % 6.5 % (1.7-9.3); Neutrophils # 5.7 K/mm3 (1.8-7.8); Platelet Count 171 K/mm3 (142-424); Red Cell Distribution Width 13.6 % (11.5-17.5); White Blood Count 8.7 K/mm3 (4.8-10.8)
[2022-06-27 11:39] LABS: CATHL Activated Clotting Time > 400 SEC (74-125)
--- NOTE | 2022-06-27 11:49 | HMH.PHAINT1 ---
Pharmacy Intervention Comments: MEDICATION RECONCILIATION COMPLETED ON PATIENT USING EXTERNAL FILL HISTORY FROM PHARMACY. -TROY SOLIS, ANTOINED
--- NOTE | 2022-06-27 12:48 | EXP.CARD.CON ---
History of Present Illness History of Present Illness Consult date: 06/27/22 Requesting physician: Solis [place] Consult reason: chest pain Chief complaint: CP,SOA, Abnormal stress test. Additional Medical History:: 1. Coronary artery disease A. Paulie Myoview, 10/2020-ischemia in the inferolateral area with EF 48% B. [facility], 12/11/2020, three-vessel disease-sent for CABG C. Three-vessel CABG-12/25/2020-Dr. George Saucedo, [facility]. SVG to PLVB, SVG to OM, HANSON to LAD D. Paulie Myoview 08/2021, abnormal E. [facility], 09/17/2021-GOKUL to LAD supplying unbypassed large diagonal artery. Patent HANSON to LAD, patent SVG to circumflex, atretic SVG to PLVB F. [facility] Myoview, 04/2022-EF 45 to 49% with ischemia in the RCA distribution. Scar in the basal mid inferior wall. G. [facility], 06/27/22, 3 GOKUL to RCA and 1 GOKUL in RCA/PDA at bifurcation of PDA/PLVB. SVG to PLVB occluded, HANSON to LAD and SVG to circumflex patent 2. Tobacco use 3. Diabetes mellitus type 2 4. Hypertension 5. Hyperlipidemia 6. Obesity 7. History of nonsustained ventricular tachycardia in 2020 on event monitor. Prior to discovery of three-vessel disease History of present illness: 66-year-old white male admitted post cath for IV Integrilin therapy after multiple stents placed to the right coronary artery distribution with transient no reflow phenomenon. Currently lying in bed in no acute distress. Some chest soreness noted with some of it being reproducible with palpation of the sternal area. Patient does continue to smoke. He states his blood sugars at home are in the 130-150 range. Please see full cardiac cath report below. ANGIOGRAPHIC RESULTS The left main artery Normal The left anterior descending artery Is occluded after large diagonal artery.? The diagonal artery has diffuse 30% stenoses The circumflex artery Proximally occluded The right coronary artery Is a large dominant vessel has proximal concentric 80% stenosis long diffuse 80% mid vessel stenosis a distal eccentric 50% stenosis and a focal 90% stenosis immediately to the bifurcation of the PDA and PLV B. The DRUMMOND ventriculogram reveals Not performed The left ventricular end-diastolic pressure Not measured HANSON to LAD large graft widely patent Saphenous vein graft to circumflex arteries widely patent Saphenous vein graft to right coronary artery ostially occluded IMPRESSION Loss of saphenous vein graft supplying a dominant right coronary artery Successful reconstruction of the ostial proximal mid and distal dominant right coronary artery severe disease reduced to 0% with 3 contiguous drug-eluting stents Successful stenting of a large posterior descending artery severe disease reduced to 0% with 1 drug-eluting stent PLAN 1. Integrilin drip for the next 18 hours due to the transient no reflow phenomena 2. Admit to the hospital for IV fluids and monitor creatinine with a recheck Chem-8 in the morning 3. Plavix and aspirin 4. LDL less than 55 to be achieved with high intensity statin 5. Avoidance of tobacco product 6. Cardiac rehabilitation Electronically signed by : Jose Joyner MD? 06/27/2022 11:00:33 [facility] Disclaimer: The information contained in this section may have been updated after the patient was seen, as this information can be updated by other users. 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
--- NOTE | 2022-06-27 13:16 | EXP.HP ---
History of Present Illness *Admission Date: 06/27/22 *Reason for visit:: chest pain, abnormal stress test *History of present illness: 66 male with h/o diabetes, HTN, HLD, tobacco use, obesity and CAD admitted following left heart cath for integrillin gtt and IVF's. Patient underwent CABG 2020. Continues to smoke. Recurrent angina led to nuclear GXT which was abnormal. LHC this morning- 3 stents to dominant RCA and 1 to posterior descending. Tolerated procedure well. Right groin access site unremarkable. Denies any chest pain or shortness of breath. Has no complaints [facility] Disclaimer: The information contained in this section may have been updated after the patient was seen, as this information can be updated by other users. 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 current occupational exposures/hazards: No caffeine: Yes Review of Systems Review of Systems Review of systems:: pertinent systems reviewed and negative unless documented below Meds Home Medications and Allergies Home Medications Medication Instructions Recorded Confirmed Type bupropion HCl 150 mg 24 hr tablet, 150 mg PO DAILY Depression 11/13/20 06/27/22 History extended release metformin 500 mg tablet,extended 500 mg PO DAILY Diabetes 11/13/20 06/27/22 History release 24 hr trazodone 100 mg tablet 100 mg PO HS SLEEP 11/13/20 06/27/22 History cholecalciferol (vitamin D3) 10 10 mcg PO DAILY Supplement 09/10/21 06/27/22 History mcg (400 unit) capsule mecobalamin (vitamin B12) 1,000 1,000 mcg sublingual HS Supplement 09/10/21 06/27/22 History mcg disintegrating tablet,sublingual aspirin 81 mg tablet,delayed 81 mg PO DAILY HEART HEALTH 06/27/22 06/27/22 History release atorvastatin 20 mg tablet 20 mg PO HS Cholesterol 06/27/22 06/27/22 History clopidogrel 75 mg tablet (Plavix) 75 mg PO DAILY PLATELET INHIBITOR 06/27/22 06/27/22 History hydrochlorothiazide 25 mg tablet 25 mg PO DAILY Fluid 06/27/22 06/27/22 History isosorbide mononitrate 60 mg 60 mg PO DAILY ANGINA 06/27/22 06/27/22 History tablet,extended release 24 hr losartan 100 mg tablet 100 mg PO DAILY Hypertension 06/27/22 06/27/22 History metoprolol succinate 50 mg 50 mg PO DAILY Hypertension 06/27/22 06/27/22 History tablet,extended release 24 hr New Prescriptions to Start Prescriptions: Allergies Allergy/AdvReac Type Severity Reaction Status Date / Time Penicillins AdvReac Verified 06/17/22 10:13 Exam Data for Last 24 hours Vital signs and Labs for Last 24 Hours: Pulse Resp BP Pulse Ox 81 18 142/94 H 95 06/27/22 12:06 06/27/22 11:15 06/27/22 11:15 06/27/22 12:06 Laboratory Results - last 24 hr 06/27/22 08:30: WBC 8.7, RBC 4.80, Hgb 14.2, Hct 43.9, MCV 91.5, MCH 29.5, MCHC 32.3, RDW 13.6, Plt Count 171, MPV 8.6, Neut % (Auto) 66.0, Lymph % (Auto) 21.7, [place] % (Auto) 6.5, Eos % (Auto) 4.5, Baso % (Auto) 1.3, Neut # (Auto) 5.7, Lymph # (Auto) 1.9, [place] # (Auto) 0.6, Eos # (Auto) 0.4, Baso # (Auto) 0.1 06/27/22 08:30: Sodium 138, Potassium 4.3, Chloride 104, Carbon Dioxide 31 H, Anion Gap 7.3, BUN 20, Creatinine 1.30 H, Estimated Creat Clear 103, Estimated GFR 56 L, Est GFR ( Amer) 67, Glucos
[2022-06-27 13:25] LABS: Coronavirus 19, PCR Not Detected (NotDetected); Influenza A, PCR Not Detected (NotDetected); Influenza B, PCR Not Detected (NotDetected)
[2022-06-27 17:46] LABS: POC Glucose,Bedside 121 (70-110)
--- NOTE | 2022-06-27 18:57 | PC.NURSE ---
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
[2022-06-28] VITALS: BP 137/58; PULSE 67; PULSE 70; RESP 18; TEMP 36.7; O2SAT 97
[2022-06-28 02:00] VITALS: BP 169/87; PULSE 76; RESP 16; O2SAT 95
[2022-06-28 03:59] VITALS: O2SAT 96
[2022-06-28 04:00] VITALS: BP 147/87; PULSE 80; PULSE 85; RESP 20; TEMP 36.7; O2SAT 96; BMI 35.2
--- NOTE | 2022-06-28 04:40 | PC.NURSE ---
Integrilin drip stopped at this time.
[2022-06-28 05:59] LABS: Basophils # 0.1 K/mm3 (0-0.2); Basophils % 0.7 % (0.1-2.0); Eosinophils # 0.3 K/mm3 (0.0-0.4); Eosinophils % 3.6 % (0.1-12.0); Hematocrit 44.1 % (42.0-52.0); Hemoglobin 14.1 g/dL (14.1-18.0); Lymphocytes # 1.8 K/mm3 (0.7-4.5); Lymphocytes % 20.7 % (10-50); Mean Corpuscular Volume 90.6 fl (80-94); Mean Platelet Volume 8.1 fl (7.4-10.4); Monocytes # 0.6 K/mm3 (0.1-1.0); Monocytes % 6.8 % (1.7-9.3); Neutrophils # 5.9 K/mm3 (1.8-7.8); Neutrophils % 68.2 % (37.0-80.0); Platelet Count 140 K/mm3 (142-424); Red Blood Count 4.86 M/mm3 (4.60-6.20); Red Cell Distribution Width 13.6 % (11.5-17.5); White Blood Count 8.7 K/mm3 (4.8-10.8)
[2022-06-28 06:00] VITALS: BP 121/68; PULSE 65; RESP 18; O2SAT 97
[2022-06-28 06:34] LABS: Chloride 106 mmol/L (98-107); Potassium 4.3 mmoL/L (3.5-5.1); Sodium 139 mmol/L (136-145)
[2022-06-28 06:35] LABS: Chol/HDL Ratio 5.1 (1-3.5); Cholesterol 132 mg/dl (140-200); HDL Cholesterol 26 mg/dl (40-60); Triglycerides 237 mg/dl (30-150); VLDL Cholesterol 47 mg/dL (0-40)
[2022-06-28 06:37] LABS: Anion Gap 9.3 mEq/L (5-15); Blood Urea Nitrogen 18 mg/dl (9-20); Calcium 8.7 mg/dl (8.4-10.2); Carbon Dioxide 28 mmol/L (22.0-30.0); Creatinine Clearance Estimated 113 mL/min (50-200); Estimated Glomerular Filt Rate 67 ml/min (>60); GFR (African American) 82 ML/MIN (>60); Glucose 131 mg/dl (74-100)
[2022-06-28 06:46] LABS: Direct LDL Cholesterol 80.98 mg/dL (100-129); Hemoglobin A1C 7.6 % (4.0-6.0)
[2022-06-28 07:07] LABS: POC Glucose,Bedside 214 (70-110)
[2022-06-28 07:07] LABS: POC Glucose,Bedside 135 (70-110)
--- NOTE | 2022-06-28 07:29 | PC.NURSE ---
Pt has not voiced any c/o t/o night. Site to right femoral is CDI. Call light within reach.
[2022-06-28 08:00] VITALS: BP 128/87; PULSE 75; PULSE 80; RESP 24; TEMP 36.6; O2SAT 100; O2SAT 98
--- NOTE | 2022-06-28 08:17 | EXP.CARD.PN ---
Subjective Subjective Date: 06/28/22 Time: 08:18 Principal diagnosis: CAD, Coronary stenting Interval history: 66-year-old white male sitting at bedside eating breakfast in no acute distress. Still with some lingering chest soreness partially reproducible with palpation. This has improved but not resolved. He is anxious to go home. Exam Data for Last 24 hours Vital signs and Labs for Last 24 Hours: Temp Pulse Resp BP Pulse Ox 98.0 F 65 18 121/68 97 06/28/22 04:00 06/28/22 06:00 06/28/22 06:00 06/28/22 06:00 06/28/22 06:00 Laboratory Results - last 24 hr 06/27/22 08:30: WBC 8.7, RBC 4.80, Hgb 14.2, Hct 43.9, MCV 91.5, MCH 29.5, MCHC 32.3, RDW 13.6, Plt Count 171, MPV 8.6, Neut % (Auto) 66.0, Lymph % (Auto) 21.7, [place] % (Auto) 6.5, Eos % (Auto) 4.5, Baso % (Auto) 1.3, Neut # (Auto) 5.7, Lymph # (Auto) 1.9, [place] # (Auto) 0.6, Eos # (Auto) 0.4, Baso # (Auto) 0.1 06/27/22 08:30: Sodium 138, Potassium 4.3, Chloride 104, Carbon Dioxide 31 H, Anion Gap 7.3, BUN 20, Creatinine 1.30 H, Estimated Creat Clear 103, Estimated GFR 56 L, Est GFR ( Amer) 67, Glucose 147 H, Calcium 8.7 06/27/22 11:15: Activated Clotting Time > 400 H* 06/27/22 13:15: SARS-CoV-2 (PCR) Not detected, Influenza A Untype (PCR) Not detected, Influenza Type B (PCR) Not detected 06/27/22 17:07: POC Glucose 121 H 06/27/22 21:11: POC Glucose 214 H 06/28/22 05:41: Hemoglobin A1c 7.6 H 06/28/22 05:41: Triglycerides 237 H, Cholesterol 132 L, LDL Cholesterol Direct 80.98 L, VLDL Cholesterol 47 H, HDL Cholesterol 26 L, Cholesterol/HDL Ratio 5.1 H 06/28/22 05:41: WBC 8.7, RBC 4.86, Hgb 14.1, Hct 44.1, MCV 90.6, MCH 29.0, MCHC 32.0, RDW 13.6, Plt Count 140 L, MPV 8.1, Neut % (Auto) 68.2, Lymph % (Auto) 20.7, [place] % (Auto) 6.8, Eos % (Auto) 3.6, Baso % (Auto) 0.7, Neut # (Auto) 5.9, Lymph # (Auto) 1.8, [place] # (Auto) 0.6, Eos # (Auto) 0.3, Baso # (Auto) 0.1 06/28/22 05:41: Sodium 139, Potassium 4.3, Chloride 106, Carbon Dioxide 28, Anion Gap 9.3, BUN 18, Creatinine 1.10, Estimated Creat Clear 113, Estimated GFR 67, Est GFR ( Amer) 82 D, Glucose 131 H, Calcium 8.7 06/28/22 07:00: POC Glucose 135 H I & O for Last 24 hours: Intake & Output 06/25/22 06/26/22 06/27/22 06/28/22 11:59 11:59 11:59 11:59 Intake Total 826 / 826 Output Total 5400 / 5400 Balance -4574 / -4574 Weight 281 lb 260 lb 8 oz Constitutional Constitutional: no acute distress *Routine Respiratory Exam Respiratory: Present CTA bilaterally *Routine Cardiovascular Exam Cardiovascular: Present RRR *Routine Extremities Exam Extremities: Absent cyanosis, clubbing or edema Progress Note: A&P Assessment and plan (1) Occluded coronary artery stent: Status: Acute (2) Abnormal cardiovascular stress test: Status: Acute (3) Fatigue: Status: Acute (4) S/P CABG x 3: Status: Acute (5) CAD (coronary artery disease): Status: Chronic (6) Diabetes mellitus: Status: Chronic (7) Tobacco use: Status: Chronic (8) HTN (hypertension): Status: Chronic (9) Hyperlipemia, idiopathic familial: Status: Chronic Assessment and Plan Assessment and Plan for All Diagnoses:: 1.? Coronary artery disease with history of three-vessel bypass and now multiple stents placed into the right coronary artery distribution with no reflow phenomenon.? Patient has received IV Integrilin for 18 hours.? Continue home medications including Plavix.? Will add ranexa 500 mg BID. 2.? Hypertension, controlled 3.? Hyperlipidemia, continue statin therapy. LDL 80.98. 4.? Diabetes mellitus, Hgb A1C 7.6. Clinically stable from cardiac standpoint for discharge home. Home medication recommendations Aspirin 81 mg daily clopidogrel 75 mg daily Atorvastatin has been increased to 40 mg daily Hydrochlorothiazide 25 mg daily Isosorbide mononitrate 60 mg daily Losartan 100 mg daily Metoprolol succinate 50 mg daily Add Ranexa 500 mg twice daily Follow-up in our office in 1
--- NOTE | 2022-06-28 08:56 | EXP.DC.SUM ---
General Admission date:: 06/27/22 Discharge date: 06/28/22 HPI HPI HPI: 66 male with h/o diabetes, HTN, HLD, tobacco use, obesity and CAD admitted following left heart cath for integrillin gtt and IVF's. Patient underwent CABG 2020. Continues to smoke. Recurrent angina led to nuclear GXT which was abnormal. LHC this morning- 3 stents to dominant RCA and 1 to posterior descending. Tolerated procedure well. Right groin access site unremarkable. Denies any chest pain or shortness of breath. Has no complaints Hospital Course Hospital Course Hospital Course: Patient underwent heart cath as detailed in the HPI. Given significant spasm and lesions was placed on Integrilin drip and watched overnight. He did well with this. Did have some pain throughout the evening but this improved. This morning he is doing well, normal exam. Normal vital signs. Plan we did discharge him today on his current goal-directed therapy of DAPT, high intensity statin, blood pressure medications. He was strongly encouraged to stop smoking. He will give this some serious contemplation. Cardiology recommended starting ranolazine for angina issues and this will be done. He will be seen in cardiology clinic in 1 week and we will follow-up in our office early next week. Exam Data for Last 24 hours Vital signs and Labs for Last 24 Hours: Temp Pulse Resp BP Pulse Ox 97.9 F 75 24 128/87 100 06/28/22 08:00 06/28/22 08:00 06/28/22 08:00 06/28/22 08:00 06/28/22 08:00 Laboratory Results - last 24 hr 06/27/22 08:30: WBC 8.7, RBC 4.80, Hgb 14.2, Hct 43.9, MCV 91.5, MCH 29.5, MCHC 32.3, RDW 13.6, Plt Count 171, MPV 8.6, Neut % (Auto) 66.0, Lymph % (Auto) 21.7, [place] % (Auto) 6.5, Eos % (Auto) 4.5, Baso % (Auto) 1.3, Neut # (Auto) 5.7, Lymph # (Auto) 1.9, [place] # (Auto) 0.6, Eos # (Auto) 0.4, Baso # (Auto) 0.1 06/27/22 08:30: Sodium 138, Potassium 4.3, Chloride 104, Carbon Dioxide 31 H, Anion Gap 7.3, BUN 20, Creatinine 1.30 H, Estimated Creat Clear 103, Estimated GFR 56 L, Est GFR ( Amer) 67, Glucose 147 H, Calcium 8.7 06/27/22 11:15: Activated Clotting Time > 400 H* 06/27/22 13:15: SARS-CoV-2 (PCR) Not detected, Influenza A Untype (PCR) Not detected, Influenza Type B (PCR) Not detected 06/27/22 17:07: POC Glucose 121 H 06/27/22 21:11: POC Glucose 214 H 06/28/22 05:41: Hemoglobin A1c 7.6 H 06/28/22 05:41: Triglycerides 237 H, Cholesterol 132 L, LDL Cholesterol Direct 80.98 L, VLDL Cholesterol 47 H, HDL Cholesterol 26 L, Cholesterol/HDL Ratio 5.1 H 06/28/22 05:41: WBC 8.7, RBC 4.86, Hgb 14.1, Hct 44.1, MCV 90.6, MCH 29.0, MCHC 32.0, RDW 13.6, Plt Count 140 L, MPV 8.1, Neut % (Auto) 68.2, Lymph % (Auto) 20.7, [place] % (Auto) 6.8, Eos % (Auto) 3.6, Baso % (Auto) 0.7, Neut # (Auto) 5.9, Lymph # (Auto) 1.8, [place] # (Auto) 0.6, Eos # (Auto) 0.3, Baso # (Auto) 0.1 06/28/22 05:41: Sodium 139, Potassium 4.3, Chloride 106, Carbon Dioxide 28, Anion Gap 9.3, BUN 18, Creatinine 1.10, Estimated Creat Clear 113, Estimated GFR 67, Est GFR ( Amer) 82 D, Glucose 131 H, Calcium 8.7 06/28/22 07:00: POC Glucose 135 H I & O for Last 24 hours: Intake & Output 06/25/22 06/26/22 06/27/22 06/28/22 11:59 11:59 11:59 11:59 Intake Total 1066 / 1066 Output Total 5400 / 5400 Balance -4334 / -4334 Weight 281 lb 260 lb 8 oz Constitutional Constitutional: no acute distress *Routine HEENT Exam Head: Present normocephalic Eye: Present EOMI and PERRL ENT: Present mucous membranes moist *Routine Neck Exam Neck: Present supple; Absent lymphadenopathy Routine Chest/Breast/Axilla Exam Comments: Healed sternotomy scar. Otherwise chest exam normal *Routine Respiratory Exam Respiratory: Present CTA bilaterally *Routine Cardiovascular Exam Cardiovascular: Present RRR *Routine Abdominal Exam Abdominal: Present soft and normoactive bowel sounds; Absent tenderness *Routine Extremities Exam Extremities: Absent cyanosis, clubbing or edema *Routine Skin Exam Skin: Pre
--- NOTE | 2022-06-28 09:37 | P.CONPHA_ITS ---
PHA City Attorney Discharge Med Bilingual Speech Therapist: Curt Carrasco has received discharge medication counseling on the following medications: METOPROLOL, RANEXA, IMDUR, ASPIRIN, LOSARTAN
--- NOTE | 2022-07-01 13:42 | CARE MANAGER ---
Left message for patient for post-discharge phone interview.
--- NOTE | 2022-07-03 13:50 | CARE MANAGER ---
Attempted post-discharge follow-up phone call, no answer.
--- NOTE | 2022-07-03 13:55 | CARE MANAGER ---
Spoke with patient for post discharge phone interview, no issues noted.
== END 2022-06-28 09:50 | disposition home or self-care (01) ==
LOC: 2ND 11:15
PROVIDERS: Internal Medicine; Physician Assistant; Admitting Provider Internal Medicine Adolescent Medicine; PCP Internal Medicine Adolescent Medicine; Visit Provider Internal Medicine Adolescent Medicine
DX: I25.118 Atherosclerotic heart disease of native coronary artery with other forms of angina pectoris (principal); Z95.1 Presence of aortocoronary bypass graft; I25.810 Atherosclerosis of coronary artery bypass graft(s) without angina pectoris; I10 Essential (primary) hypertension; E78.5 Hyperlipidemia, unspecified; F17.210 Nicotine dependence, cigarettes, uncomplicated; E11.9 Type 2 diabetes mellitus without complications; Z79.84 Long term (current) use of oral hypoglycemic drugs; Z79.899 Other long term (current) drug therapy; Z79.02 Long term (current) use of antithrombotics/antiplatelets; Z20.822 Contact with and (suspected) exposure to COVID-19
CPT/HCPCS: 36415; 80048; 80061; 82962; 83036; 85025; 85347; 92928; 93459; 99152; 99153; C1725; C1760; C1769; C1876; C1894; C9600; C9803; G0378; J1327; J1644; Q9967; U0003; U0005

== ENCOUNTER → 2022-08-31 09:46 | Outpatient (CLI) | payer OTHER, SELFPAY ==
[2022-08-31 11:27] LABS: Chloride 103 mmol/L (98-107); Potassium 5.5 mmoL/L (3.5-5.1); Sodium 138 mmol/L (136-145)
[2022-08-31 11:30] LABS: Anion Gap 12.5 mEq/L (5-15); Blood Urea Nitrogen 26 mg/dl (9-20); Calcium 9.1 mg/dl (8.4-10.2); Carbon Dioxide 28 mmol/L (22.0-30.0); Estimated Glomerular Filt Rate 47 ml/min (>60); GFR (African American) 57 ML/MIN (>60); Glucose 133 mg/dl (74-100)
[2022-08-31 11:40] LABS: NT Pro Brain Natriuretic Pep. 184 pg/mL (0-125)
== END ==
PROVIDERS: PCP Nurse Practitioner Family; Visit Provider Internal Medicine Cardiovascular Disease
DX: R06.00 Dyspnea, unspecified (principal); I25.10 Atherosclerotic heart disease of native coronary artery without angina pectoris; I10 Essential (primary) hypertension; E11.69 Type 2 diabetes mellitus with other specified complication; E78.5 Hyperlipidemia, unspecified; R60.0 Localized edema; E66.9 Obesity, unspecified; Z68.37 Body mass index [BMI] 37.0-37.9, adult; Z72.0 Tobacco use; Z95.1 Presence of aortocoronary bypass graft; Z79.84 Long term (current) use of oral hypoglycemic drugs
CPT/HCPCS: 36415; 80048; 83880

== ENCOUNTER → 2023-01-22 08:49 | Outpatient (CLI) | payer MEDICARE, SELFPAY ==
--- NOTE | 2023-01-22 08:53 | US_ITS ---
FINAL REPORT CLINICAL HISTORY: E11.9 - Type 2 diabetes mellitus without complications COMPARISON: None FINDINGS: RENAL ULTRASOUND Ultrasound images of the kidneys were obtained. Limited images of the liver parenchyma demonstrates normal echogenicity. The right kidney measures 9.6 cm in length. It is normal echogenicity. There is no hydronephrosis. The left kidney measures 11.7 cm in length. It is normal echogenicity. There is no hydronephrosis. IMPRESSION: Normal renal ultrasound. Reviewed, Interpreted and Dictated by Pj Saeed MD Transcribed by Lexi Anderson Authenticated and [facility]
--- NOTE | 2023-01-22 08:54 | CA_ITS ---
FINAL REPORT CLINICAL HISTORY: Unstable HTN, Obesity FINDINGS: DOPPLER RENAL VESSELS The right kidney measures 10.8 cm in length. The left kidney measures 11.8 cm in length. Renal cortical echogenicity is within normal limits bilaterally. There is no hydronephrosis. Right main renal artery systolic velocity: 156 cm/sec Aortic-right renal artery flow velocity ratio: 2.0 Resistive indices: 0.53-0.64 Left main renal artery systolic velocity: 123 cm/sec. Aortic-left renal artery flow velocity ratio: 1.58 Resistive indices: 0.62-0.66 IMPRESSION: No evidence of hemodynamically significant renal artery stenosis CTA or gadolinium-enhanced MR may be considered as a more sensitive exam. Alternatively noncontrast MRI may be considered for assessing main renal arteries for stenosis as a more sensitive exam if the patient has renal insufficiency. Reviewed, Interpreted and Dictated by Pj Saeed MD Transcribed by Nacrisa Magaña Authenticated and [facility]
== END ==
PROVIDERS: PCP Nurse Practitioner Family; Visit Provider Physician Assistant
DX: E11.9 Type 2 diabetes mellitus without complications (principal); E78.5 Hyperlipidemia, unspecified; I10 Essential (primary) hypertension; I25.10 Atherosclerotic heart disease of native coronary artery without angina pectoris; Z72.0 Tobacco use
CPT/HCPCS: 76770; 93976

== ENCOUNTER → 2023-02-06 06:49 | Outpatient (CLI) | payer MEDICARE, SELFPAY ==
--- NOTE | 2023-02-06 06:59 | CT_ITS ---
FINAL REPORT TECHNIQUE: Axial images were obtained from the lung apex to the mid abdomen by computed tomography. This study was performed with techniques to keep radiation doses as low as reasonably achievable (ALARA). Individualized dose reduction techniques using automated exposure control or adjustment of mA and/or kV according to the patient's size were employed. CLINICAL HISTORY: HISTORY OF NICOTINE DEPENDENCE CURRENT SMOKER 1PPD X40 YEARS FINDINGS: CHEST CT LOW DOSE CTDI vol (mGy): 2.90 DLP (mGy-cm): 103.42 The patient is status post median sternotomy. There is coronary artery calcification. There is no axillary adenopathy. There is no hilar or mediastinal adenopathy. The heart is normal in size. There is no pericardial or pleural effusion. There is a focal ground-glass nodule in the right upper lobe measuring 12 mm. There is diffuse bronchial wall thickening consistent with bronchitis. Limited images of the upper abdomen are unremarkable. IMPRESSION: Right upper lobe ground-glass nodule. Lung RADS category 2. Recommend 12 month follow-up low-dose chest CT. Reviewed, Interpreted and Dictated by Leonardo Moss III, MD Transcribed by Kandice Carter Authenticated and . [facility]
--- NOTE | 2023-02-06 07:01 | US_ITS ---
FINAL REPORT TECHNIQUE: Ultrasound images of the abdominal aorta were obtained. CLINICAL HISTORY: HX OF NICOTINE DEPENDENCE COMPARISON: None FINDINGS: ULTRASOUND OF THE ABDOMINAL AORTA The aorta measures up to 2.4 cm. The bifurcation is normal. IMPRESSION: No evidence of abdominal aortic aneurysm. Reviewed, Interpreted and Dictated by Leonardo Moss III, MD Transcribed by Lexi Anderson Authenticated and [facility]
== END ==
LOC: RAD 06:50
PROVIDERS: PCP Nurse Practitioner Family; Visit Provider Internal Medicine Adolescent Medicine
DX: Z87.891 Personal history of nicotine dependence (principal); I71.40 Abdominal aortic aneurysm, without rupture, unspecified
CPT/HCPCS: 71271; 76770

== ENCOUNTER 2023-03-25 07:42 | Day surgery (SDC) | payer MEDICARE, SELFPAY ==
[2023-03-21 15:35] VITALS: BMI 36.3
[2023-03-25 08:02] VITALS: BP 149/103; PULSE 89; RESP 20; TEMP 36.4; O2SAT 93
[2023-03-25 08:14] VITALS: O2SAT 93
[2023-03-25 08:15] LABS: POC Glucose,Bedside 93 (70-110)
--- NOTE | 2023-03-25 08:48 | P.PCN_ITS ---
Procedure: Date: 03/25/23 Patient Date of :: 1955 Procedure Performed:: Colonoscopy with polypectomy Indications:: History of colon polyps Performing Provider:: Raghu Lopez MD Referring Provider:: . Sedation:: Monitored anesthesia care Procedure:: After informed consent was obtained the patient was taken to the endoscopy suite. Sedation ensued after the patient was transferred to the left lateral d ecubitus position. Pulse, blood pressure, and oxygen saturation were monitored throughout the procedure. Digital rectal exam revealed no significant abnormality. The colonoscope was placed in position. The entire colon was evaluated. The colonoscope was carefully removed and the patient was transferred to recovery in stable condition. Please see findings and specimens below for detail. Findings:: Bowel preparation fairly poor Moderate spasticity Moderate tortuosity Hemorrhoidal tag/cushions Polyps (see specimens) Specimens:: Periappendiceal polyp (cold biopsy forceps) Adjacent transverse colon polyps (cold biopsy forceps) Recommendations:: Timing of repeat colonoscopy is pending pathology will likely be around 1-2 years with extended bowel preparation secondary to history of polyps, spasticity/tortuosity, and fairly poor bowel preparation. Complications:: No immediate Estimated blood obtained (mL): 1 Colonoscopy Component Colonoscopy Component Was a colonoscopy performed during today's procedure?: Yes Recommended follow up colonoscopy of at least 10 years?: No If no, follow up colonoscopy recommended in ___ years?: (See above) Reason for not recommending >/= 10 yr follow-up interval?: (See above)
[2023-03-25 08:50] VITALS: BP 153/96; PULSE 91; RESP 18; TEMP 36.9; O2SAT 98
[2023-03-25 09:00] VITALS: BP 127/75; PULSE 94; RESP 17; O2SAT 94
--- NOTE | 2023-03-25 09:02 | P.PNANES_ITS ---
[facility] Disclaimer: The information contained in this section may have been updated after the patient was seen, as this information can be updated by other users. Medical History (Updated 03/25/23 @ 07:55 by Nedra Viveros RN) Abnormal cardiovascular stress test Atypical angina CAD (coronary artery disease) Diabetes mellitus Dyspnea Dyspnea Edema of both lower extremities Fatigue History of left heart catheterization (LHC) Hyperkalemia Typical angina Surgical History S/P CABG x 3 Family History Other No significant family history Social History Smoking Status: Current every day smoker tobacco type: cigarettes packs per day: 1 second hand exposure: Yes alcohol intake: current substance use type: denies use current occupational status: employed Travel in the last 8 weeks: Inside the [place] household members: spouse housing: house 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 current occupational exposures/hazards: No caffeine: Yes [facility] Anesthesia Checklist Patient Identification Patient Identification: Arm Band and Family Structural Data Admitted From: Home Planned Operative Procedure/s: colonoscopy Consent for Planned Operative Procedure(s) Verified: Yes Verified Documents: Surgical Consent and History and Physical NPO Status Verified Time NPO: 00:00 Additional verifications Patient : No Anesthesia Reactions: No Hx Blood Transfusions: No Cephalosporin Allergy: No Previous Colonoscopy: Yes Airway Assessment Mallampati Score:: Class II C-Spine Mobility Assessed: Yes TMJ Mobility Assessed: Yes Dentition: Edentulous Neurological Assessment Level of Consciousness: Awake, Alert, Appropriate and Follows Commands Hx Seizures: No Numbness or tingling in extremities: No Anesthesia Plan Anesthesia Risk discussed: Yes ASA Class: III Anesthesia Type: MAC w/Spinal Preoperative Comments Pre-Operative Comments: CABG X3. NIDDM.. Htn. Asthma.
[2023-03-25 09:10] VITALS: BP 127/84; PULSE 95; RESP 17; O2SAT 95
[2023-03-25 09:20] VITALS: BP 154/83; PULSE 76; RESP 16; O2SAT 95
== END 2023-03-25 09:20 | disposition home or self-care (01) ==
PROVIDERS: PCP Nurse Practitioner Family; Visit Provider Surgery
PROC: 0DJD8ZZ Inspection of Lower Intestinal Tract, Via Natural or Artificial Opening Endoscopic (ICD-10-PCS; CPT 45380; principal; 2023-03-25 08:30)
DX: Z12.11 Encounter for screening for malignant neoplasm of colon (principal); Z86.010 Personal history of colon polyps; D12.0 Benign neoplasm of cecum; D12.3 Benign neoplasm of transverse colon; E11.9 Type 2 diabetes mellitus without complications
CPT/HCPCS: 45380; 82962; 88305

== ENCOUNTER 2023-09-25 13:39 | Outpatient (CLI) | payer MEDICARE, SELFPAY ==
--- NOTE | 2023-09-25 13:46 | CA_ITS ---
APPROVED REPORT EXAM: Comprehensive 2D, Doppler, and color-flow Echocardiogram Lunchroom Operator: Isamar Dixon, DOROTHY, RVS Ht: 6 ft 0 in Wt: 263lbs BSA: 2.39 BP: 148/88 mmHg Indications: CP, DYSPNEA, SMOKER, CABGx3, 5 coronary stents, HTN, HLD 2D Dimensions Left Atrium 4.95 cm LA Volume 71.20 mL LA Volume Index 29.417812 mL/m2 (M/F) 16-34 M-Mode Dimensions RVDd 3.42 cm (0.9-2.6) LA Diam 3.92 cm (1.9-4.0) LVDd 5.39 cm (3.5-5.7) LVDs 3.79 cm (3.5-5.7) IVSd 1.22 cm (0.6-1.1) PWd 1.22 cm (0.6-1.1) EF (Teich) 56.20% EPSs 0.85 cm FS 29.70% EDV (Teich) 140.70 mL TAPSE 1.43 (<1.7) ESV (Teich) 61.60 mL LV Diastology E Decel Time 160 (160-240 msec) E/A Ratio 1.10 MED A' 10.30 cm/s LAT A' 7.80 cm/s Aortic Valve SATHYA Index 1.36 cm2/m2 AoV Peak Hugo. 146.0 (50-130 cm/s) AO Peak GR. 8.50 mmHg AO Mean GR. 4.20 (<5 mmHg) AO VTI 30.8 (18-25 cm) SATHYA (VTI) 3.33 (2.5-4.5 cm2) Mitral Valve MV A Velocity 103.0 (40-130 cm/s) E/A Ratio 1.10 Pulmonary Valve PV Peak Velocity 91.0 (50-150 cm/s) Tricuspid Valve TR P. Velocity 181.00 cm/s Left Ventricle The left ventricle is normal size. The left ventricular systolic function is normal. The left ventricular ejection fraction is within the normal range. There is normal left ventricular wall thickness. There is normal LV segmental wall motion. The left ventricular diastolic function is normal. LVEF is 55%. Right Ventricle The right ventricle is normal size. The right ventricular systolic function is normal. Atria The left atrium size is normal. The right atrium size is normal. There is no Doppler evidence of interatrial shunt. Aortic Valve The aortic valve is mildly thickened. Trace aortic regurgitation. There is no aortic valvular stenosis. Mitral Valve The mitral valve is normal in structure. No evidence of mitral valve stenosis. Trace mitral regurgitation. Tricuspid Valve The tricuspid valve leaflets are thin and pliable. Trace tricuspid regurgitation. RVSP is normal. Pulmonic Valve The pulmonary valve is normal in structure. Trace pulmonic regurgitation. Great Vessels The aortic root is normal in size. The ascending aorta is normal in size. IVC is normal in size and collapses >50% with inspiration. Pericardium There is no pericardial effusion. Other Information Study Quality: Fair Conclusion Normal biventricular systolic function. No significant valvular stenosis or regurgitation. Electronically signed by : Mariela Perla MD 09/30/2023 12:41:03
== END 2023-09-25 23:59 | disposition home or self-care (01) ==
LOC: RT 13:41
PROVIDERS: PCP Internal Medicine Adolescent Medicine; Visit Provider Physician Assistant
DX: E66.9 Obesity, unspecified (principal); Z72.0 Tobacco use; I10 Essential (primary) hypertension; E78.5 Hyperlipidemia, unspecified; R60.0 Localized edema; Z95.1 Presence of aortocoronary bypass graft; I25.10 Atherosclerotic heart disease of native coronary artery without angina pectoris; E11.69 Type 2 diabetes mellitus with other specified complication; R07.89 Other chest pain; R06.09 Other forms of dyspnea; Z68.35 Body mass index [BMI] 35.0-35.9, adult; Z79.84 Long term (current) use of oral hypoglycemic drugs
CPT/HCPCS: 93306